=== PATIENT | female | born 1960 | race Caucasian/White ===

== ENCOUNTER 2019-12-21 12:32 | Observation (INO) | payer OTHER, SELFPAY ==
[2019-12-21] VITALS (8 sets, daily range): BP systolic 73–123; BP diastolic 44–67; PULSE 64–102; RESP 14–24; TEMP 36.4–36.7; O2SAT 97–100; BMI 28.6
--- NOTE | ~2019-12-21 | XR_ITS ---
EXAMINATION: XR chest 2V DATE: 12/21/2019 13:11 INDICATION: Shortness of breath TECHNIQUE: PA and lateral views of the chest are obtained. COMPARISON: 11/09/2018 FINDINGS: The lungs are free of acute opacities. There is no pleural effusion or pneumothorax. The ca rdiomediastinal silhouette is normal. There is mild thoracic spondylosis. IMPRESSION: 1. No acute cardiopulmonary abnormality. Reviewed, dictated and finalized at location A.
--- NOTE | ~2019-12-21 | CT_ITS ---
EXAMINATION: CT abdomen pelvis w con DATE: 12/21/2019 15:58 INDICATION: Nausea, vomiting and diarrhea. TECHNIQUE: Computed tomography (CT) of the abdomen and pelvis was performed with 100 cc Omnipaque 350 intravenous contrast. The dose-length product was 908.85 mGy-cm. Automated exposure control and iter ative reconstruction technique were employed. COMPARISON: No prior studies for comparison. FINDINGS: Lung bases are unremarkable. Heart size is normal. No significant pleural or pericardial ef fusion. Densely calcified granuloma left lower lobe. 1.8 cm cyst in the left hepatic lobe. Diffuse fa tty infiltration of the liver. The spleen, pancreas, adrenal glands are unremarkable. There is a left renal cortical thinning posteriorly. There is a 1.6 cm right renal cyst. Gallbladder is present. Non obstructive bowel gas pattern. Normal appendix. No abnormal pelvic masses or fluid collections. No ly mphadenopathy. There is mild lumbar spondylosis. No free air or free fluid. IMPRESSION: 1. No acute abdominal abnormality. 2: Hepatic steatosis. Reviewed, dictated and finalized at location A.
--- NOTE | 2019-12-21 12:42 | ED.SOB ---
HPI - SOB/Dyspnea General Chief Complaint: Shortness of Breath/Dyspnea Stated Complaint: sob Time Seen by Provider: 12/21/19 12:43 Source: patient Mode of arrival: ambulatory Limitations: no limitations History of Present Illness HPI Narrative: 59-year-old woman comes in today complaining of lightheadedness has started this morning in the shower and shortness of breath. Patient states that her blood pressures were normal at home but she kept having episodes of shortness of breath and lightheadedness. She denies having chest pain or pressure, nausea, vomiting, syncope or loss of consciousness, recent head injuries, calf pain or swelling, cough, fever or cold symptoms. She has had no recent travel or sick exposures nor has she had history of VTE, hormone use, recent surgery, immobilization. She is not a smoker. MD elicited complaint: shortness of breath Onset (ago): hour(s) (4-6) Timing: constant Severity: moderate Exacerbating factors: other ( Standing) Relieving factors: rest Associated symptoms: diaphoresis and nausea/vomiting Treatment prior to arrival: none Related Data Home Medications Medication Instructions Recorded Confirmed hydrochlorothiazide 25 mg PO DAILY 12/21/19 12/21/19 losartan 100 mg PO DAILY 12/21/19 12/21/19 Allergies Allergy/AdvReac Type Severity Reaction Status Date / Time CLAUDE Inhibitors Allergy Intermediate angioedema Verified 05/01/18 10:10 amoxicillin Allergy Intermediate hives Verified 05/24/14 11:41 Cephalosporins Allergy Unknown Rash Verified 12/21/19 13:48 Penicillins Allergy Unknown Unknown Verified 12/21/19 12:51 1. amoxicillin nkla Allergy Unknown Unknown Uncoded 12/21/19 12:51 nkfa Allergy Unknown Unknown Uncoded 12/21/19 12:51 Review of Systems Constitutional: Constitutional: Denies chills, Reports fatigue, Denies fever(s) and Reports weakness Eyes: Eyes: Denies change in vision and Denies photophobia ENT: Denies dysphagia, Denies nasal congestion and Denies sore throat Cardiovascular: Cardiovascular: Denies chest pain and Denies radiating jaw, neck or arm pain Respiratory: Respiratory: Denies chest congestion, Denies cough, Reports dyspnea and Denies wheezing Gastrointestinal: Gastrointestinal: Denies abdominal pain, Denies diarrhea, Denies nausea and Denies vomiting Genitourinary: Genitourinary: Denies hematuria, Denies nocturia and Denies dysuria Musculoskeletal: Musculoskeletal: Denies arthralgias and Denies joint swelling Integumentary/Breasts: Skin/Breast: Denies pruritus, Denies erythema and Denies rash Neurologic: Reports as per HPI, Denies vertigo, Reports dizziness, Denies syncope and Denies focal weakness Psychiatric: Psychiatric: Denies anxiety and Denies depression Endocrine: Endocrine: Denies polydipsia and Denies polyuria Hematologic/Lymphatic: Hematologic/Lymphatic: Denies easy bleeding and Denies easy bruising Allergic/Immunologic: Allergic/Immunologic: Denies lip swelling and Denies wheezing PMFSH Past Medical History Medical History Hypertension Family History Family History (Updated 02/01/17 @ 13:17 by DOCTOR UNKNOWN) Father Hypertension Other Family history of alcoholism Family history of malignant neoplasm Family history of mental disorder Social History Social History (Updated 12/21/19 @ 14:11 by Ja Arroyo MD) Smoking status: Never smoker Alcohol intake: current Alcohol use details: daily Substance use: never Living arrangements: with family Exam Const: General: alert Orientation/consciousness: patient oriented x3 Limitations: no limitations Other: moderate acute distress HENMT: Ears: external ears normal, TM's normal bilaterally and EAC's normal Mouth: Yes Normal oral and palatal mucosa present and Yes moist mucous membranes Throat: posterior oropharynx normal Eyes: Conjunctivae: conjunctivae normal Pupils: Equal, round and reactive
--- NOTE | 2019-12-21 12:47 | ECG_ITS ---
Measurements Intervals [place] Rate: 73 P: 44 MD: 159 QRS: 63 QRSD: 101 T: 50 QT: 434 QTc: 481 Interpretive Statements SINUS RHYTHM NONSPECIFIC T-WAVE ABNORMALITY- ANTERIOR LEADS BASELINE ARTIFACT- II, III, V4-V6 NORMAL ECG Electronically Signed On 12-21-2019 13:03:35 CDT by Bobby Calvillo D.O.
--- NOTE | 2019-12-21 13:00 | PC.NURSE ---
xray called, pt vomiting while trying to stand for chest xray, edp aware.
[2019-12-21] MEDS: ONDANSETRON INJ 4 MG/2 ML VIAL IV PUSH (13:04)
[2019-12-21] MEDS: SODIUM CHLORIDE 0.9% IV 1,000 ML 999 ML IV CONT ×2 (13:22→15:11)
[2019-12-21 13:31] LABS: Add Urine Microscopic? YES; Appearance Urine Clear (Clear); Basophils Absolute Auto 0.05 K/mm3 (0.00-0.10); Basophils Percent Auto 0.9 % (0.0-1.0); Bilirubin Urine Negative (Negative); Blood Urine 1+ (Negative); Color Urine Yellow (Yellow); Eosinophils Absolute Auto 0.02 K/mm3 (0.02-0.50); Eosinophils Percent Auto 0.3 % (1.0-6.0); Glucose Urine UA Negative (Negative); Hemoglobin 14.1 g/dL (12.0-15.0); Immature Granulocyte Absolute 0.03 K/mm3 (0.00-0.00); Immature Granulocyte Percent A 0.5 % (0.0-0.0); Ketones Urine Negative (Negative); Leukocyte Esterase Ur Trace LEU/UL (Negative); Lymphocytes Absolute Auto 1.89 K/mm3 (1.10-4.50); Lymphocytes Percent Auto 32.5 % (18.0-42.0); Mean Corpuscular HGB Conc 36.2 g/dL (32.0-36.0); Mean Corpuscular Hemoglobin 36.7 pg (27.0-31.0); Mean Corpuscular Volume 101.6 fL (78.0-102.0); Mean Platelet Volume 10.1 fl (9.2-11.8); Monocytes Absolute Auto 0.55 K/mm3 (0.10-0.90); Monocytes Percent Auto 9.5 % (2.0-11.0); Neutrophils Absolute Auto 3.3 K/mm3 (1.7-7.2); Neutrophils Percent Auto 56.3 % (50.0-70.0); Nitrate Urine Negative (Negative); Platelet Count Result 220 K/mm3 (150-420); Protein Urine Negative (Negative); Red Blood Count 3.84 M/mm3 (4.20-5.40); Red Cell Distribution Width 13.6 % (11.6-14.4); Urobilinogen Urine 0.2 mg/dL (0.2-1.0); White Blood Count 5.8 K/mm3 (4.8-10.8); pH Urine 6.5 (5.0-8.0)
[2019-12-21 13:35] LABS: Bacteria Urine Trace /hpf; Squamous Epithelial Cell Urine Few /hpf (Few); WBC Urine 0-3 /hpf (0-3)
[2019-12-21 13:44] LABS: Partial Thromboplastin Time 25.2 SEC (22.3-31.6)
[2019-12-21 13:48] LABS: Albumin Level 3.2 g/dL (3.4-5.0); Alkaline Phosphatase 196 U/L (46-116); Anion Gap 25.7 mmol/L (7-16); Bilirubin,Total 1.2 mg/dL (0.00-1.00); Blood Urea Nitrogen 16 mg/dL (7-18); Calcium 8.2 mg/dL (8.5-10.1); Carbon Dioxide 17 mmol/L (21-32); Chloride 92 mmol/L (98-108); Estimated CRCL calculation 38 ml/min; Estimated Glomerular Filt Rate 34; Glucose 198 mg/dL (70-99); Osmolality Calculated 281 mOsm/kg (285-295); Potassium 2.7 mmol/L (3.5-5.1); Sodium 132 mmol/L (136-145); Total Protein 8.1 g/dL (6.4-8.2)
[2019-12-21 13:49] LABS: D Dimer 0.46 mg/L (0.19-0.50)
[2019-12-21 13:53] LABS: BNP 17.2 pg/mL (0-100)
[2019-12-21 14:01] LABS: INR 1.2; Prothrombin Time 12.6 Seconds (9.64-11.0)
[2019-12-21 14:10] LABS: Alanine Aminotransferase 170 U/L (14-59); Aspartate Amino Transferase 610 U/L (15-37); Troponin I < 0.02 ng/mL (0.00-0.056)
[2019-12-21] MEDS: KCL 20 MEQ/SW 100 ML 100 ML 50 MEQ IVPB ×2 (14:55→17:30)
[2019-12-21 15:00] LABS: CRP < 0.2 mg/dL (0.0-0.9)
[2019-12-21 15:22] LABS: Lactic Acid 8.4 mmol/L (0.4-2.0)
--- NOTE | 2019-12-21 15:40 | PC.NURSE ---
Pt to be admitted to room 202, will call report after pt has abdominal ct scan.
[2019-12-21 16:15] LABS: Salicylate < 0.3 mg/dL (2.8-20.0)
--- NOTE | 2019-12-21 16:15 | PC.NURSE ---
RN unavailable to take report at this time.
[2019-12-21 16:16] LABS: Acetaminophen 0 ug/mL (10-30); Ethanol < 3 mg/dL (0-6)
[2019-12-21] MEDS: SODIUM CHLORIDE 0.9% IV 1,000 ML 125 ML IV CONT (16:31)
--- NOTE | 2019-12-21 17:33 | ADMGEN ---
This patient, Makenna Garcia, was admitted to 2nd Floor Room 202-2. Patient/family oriented to hospital policies and general routines including ID bracelet, bed and alarms, visiting hours, pain management, procedures, bathroom and other care routines, personal items, smoking policy, room service/diet, and visiting hours. Valuables list has been completed. Information on how to activate the Rapid Response Team has been discussed. Patient/Family are encouraged to report perceived risks to care and to ask questions if they do not understand what they are told or what they should do.
--- NOTE | 2019-12-21 19:30 | PC.NURSE ---
Patient lying in bed watching tv. IV NS infusing without difficulty. Patient denies SOB/pain/complaints/needs @ this time. No distress noted. Call light in reach.
--- NOTE | 2019-12-21 20:07 | PC.NURSE ---
Methyl alcohol level canceled off worklist after checking with Anaya from lab that test had already been done.
[2019-12-21 20:28] LABS: Anion Gap 21.9 mmol/L (7-16); Blood Urea Nitrogen 13 mg/dL (7-18); Calcium 7.4 mg/dL (8.5-10.1); Carbon Dioxide 18 mmol/L (21-32); Chloride 97 mmol/L (98-108); Estimated CRCL calculation 45 ml/min; Estimated Glomerular Filt Rate 41; Glucose 139 mg/dL (70-99); Osmolality Calculated 278 mOsm/kg (285-295); Potassium 3.9 mmol/L (3.5-5.1); Sodium 133 mmol/L (136-145)
[2019-12-21 20:31] LABS: Troponin I < 0.02 ng/mL (0.00-0.056)
--- NOTE | 2019-12-21 20:35 | PC.NURSE ---
Patient lying in bed watching tv. IV NS infusing without difficulty. Patient denies SOB/pain/complaints/needs @ this time. No distress noted. Call light in reach.
[2019-12-21] MEDS: METOPROLOL TARTRATE 25 MG TABLET PO (21:09)
--- NOTE | 2019-12-21 21:10 | PC.NURSE ---
Patient lying in bed watching tv. IV NS infusing without difficulty. Patient denies SOB/pain/complaints/needs @ this time. No distress noted. Call light in reach.
--- NOTE | 2019-12-21 22:00 | PC.NURSE ---
Patient lying in bed watching tv. IV NS infusing without difficulty. Patient denies SOB/pain/complaints/needs @ this time. No distress noted. Call light in reach.
--- NOTE | 2019-12-21 23:10 | PC.NURSE ---
Patient ambulated to/from bathroom with SBA for moving IV pole. Patient had steady gait. No SOB noted. Denies pain/complaints/needs @ this time. No distress noted. Call light in reach.
[2019-12-22] VITALS (8 sets, daily range): BP systolic 113–136; BP diastolic 61–86; PULSE 70–89; RESP 16–18; TEMP 36.6–36.8; O2SAT 97–100
--- NOTE | 2019-12-22 00:05 | PC.NURSE ---
Patient lying in bed watching tv and says she doesn't go to bed until 2-3am @ home. IV NS infusing without difficulty. Patient denies SOB/pain/complaints/needs @ this time. No distress noted. Call light in reach.
[2019-12-22] MEDS: SODIUM CHLORIDE 0.9% IV 1,000 ML 125 ML IV CONT ×2 (00:55→08:54)
--- NOTE | 2019-12-22 01:15 | PC.NURSE ---
Patient lying in bed watching tv. IV NS infusing without difficulty. Patient denies SOB/pain/complaints/needs @ this time. No distress noted. Call light in reach.
--- NOTE | 2019-12-22 02:15 | PC.NURSE ---
Patient lying in bed watching tv and says she plans on turning tv off shortly and trying to get some sleep. IV NS infusing without difficulty. Patient denies SOB/pain/complaints/needs @ this time. No distress noted. Call light in reach.
[2019-12-22 02:18] LABS: Lactic Acid 1.6 mmol/L (0.4-2.0)
[2019-12-22 02:19] LABS: Troponin I < 0.02 ng/mL (0.00-0.056)
[2019-12-22 05:41] LABS: Basophils Absolute Auto 0.05 K/mm3 (0.00-0.10); Basophils Percent Auto 1.1 % (0.0-1.0); Eosinophils Absolute Auto 0.06 K/mm3 (0.02-0.50); Eosinophils Percent Auto 1.4 % (1.0-6.0); Hematocrit 33.3 % (35.0-49.0); Hemoglobin 11.8 g/dL (12.0-15.0); Immature Granulocyte Absolute 0.01 K/mm3 (0.00-0.00); Immature Granulocyte Percent A 0.2 % (0.0-0.0); Lymphocytes Absolute Auto 1.84 K/mm3 (1.10-4.50); Lymphocytes Percent Auto 41.4 % (18.0-42.0); Mean Corpuscular HGB Conc 35.4 g/dL (32.0-36.0); Mean Corpuscular Hemoglobin 35.9 pg (27.0-31.0); Mean Corpuscular Volume 101.2 fL (78.0-102.0); Mean Platelet Volume 10.2 fl (9.2-11.8); Monocytes Absolute Auto 0.57 K/mm3 (0.10-0.90); Monocytes Percent Auto 12.8 % (2.0-11.0); Neutrophils Absolute Auto 1.9 K/mm3 (1.7-7.2); Neutrophils Percent Auto 43.1 % (50.0-70.0); Platelet Count Result 159 K/mm3 (150-420); Red Blood Count 3.29 M/mm3 (4.20-5.40); Red Cell Distribution Width 13.5 % (11.6-14.4); White Blood Count 4.4 K/mm3 (4.8-10.8)
[2019-12-22 06:10] LABS: Alanine Aminotransferase 113 U/L (14-59); Albumin Level 2.4 g/dL (3.4-5.0); Alkaline Phosphatase 156 U/L (46-116); Anion Gap 16.9 mmol/L (7-16); Aspartate Amino Transferase 352 U/L (15-37); Bilirubin,Total 0.9 mg/dL (0.00-1.00); Blood Urea Nitrogen 9 mg/dL (7-18); Calcium 7.5 mg/dL (8.5-10.1); Carbon Dioxide 22 mmol/L (21-32); Chloride 103 mmol/L (98-108); Estimated CRCL calculation 58 ml/min; Estimated Glomerular Filt Rate 56; Glucose 114 mg/dL (70-99); Osmolality Calculated 287 mOsm/kg (285-295); Potassium 2.9 mmol/L (3.5-5.1); Sodium 139 mmol/L (136-145); Total Protein 6.4 g/dL (6.4-8.2)
[2019-12-22 06:12] LABS: Troponin I < 0.02 ng/mL (0.00-0.056)
[2019-12-22] MEDS: METOPROLOL TARTRATE 25 MG TABLET PO (08:56)
--- NOTE | 2019-12-22 11:53 | PM.IMHP ---
H&P: HPI History of Present Illness Chief complaint: sob Narrative: Maknena Garcia is a 59 year old female admitted with shortness of breath, dyspnea, and lightheadedness. She was admitted yesterday after complaining of lightheadedness that started yesterday morning in the shower along with shortness of breath. Patient states that her blood pressures were normal at home but she kept having episodes of shortness of breath and lightheadedness. Also having diaphoresis and nausea/vomiting. She denies having chest pain or pressure, nausea, vomiting, syncope or loss of consciousness, recent head injuries, calf pain or swelling, cough, fever or cold symptoms. She has had no recent travel or sick exposures nor has she had history of VTE, hormone use, recent surgery, immobilization. She is not a smoker, but her smokes approximately 3 packs per day outside the home in the garage or in the basement. She Was admitted with Acute dehydration, Acute hypokalemia, Acidosis, lactic, and Acute renal failure. Today when I went to see Makenna she said she did not realize how much water she should of been drinking at home. She stated that she went all day yesterday without eating anything as well, literally eating nothing until 6:00 p.m. last night when she was in the ER. She stated that her household has been pretty stressful the last couple of months with 4 or more teenagers over the age of 16 to care for as well as her home from work due to lay off from his job. She has also lost multiple parents and grandparents over the last few years so her house is full of furniture as well as her garage, so she is looking to get storage units. She no longer works for the [employer] full-time and is now been home. She does admit to drinking the large boxes of wine on a daily basis, but felt she was watering it down by adding water to it. She did admit that her is an alcoholic, but denied contributing to that and does not assist him by getting more alcohol for him. Her creatinine admission was significantly elevated at 1.57, this morning her creatinine was 1.02. She has received continuous IV fluids including large IV boluses in the ER yesterday. She is hydrating herself well today, and has already taken in a couple mugs of ice water orally. Her sodium has also improved from 08/23 to admission to 139 this morning. we will need to replenish her potassium as this morning it was 2.9. I have ordered 40 oral potassium as well as 20 IV potassium. That is currently infusing, with a repeat potassium level scheduled for 3:30 p.m. today. Plan to discharge her if that is adequately replenished. Her blood and urine cultures will remain pending and she can follow-up with her primary care physician's office after discharge. Review of Systems Constitutional: Constitutional: Denies chills, Denies excessive sweating, Reports fatigue, Denies fever(s), Denies headache(s), Denies increased appetite, Denies snoring, Reports weakness and Denies weight gain Eyes: Eyes: Denies exophthalmos, Denies change in vision, Denies diplopia, Denies floaters, Denies loss of peripheral vision and Denies photophobia ENT: Denies dysphagia, Denies vertigo, Reports dizziness, Denies facial pain, Denies headache(s), Denies lip swelling, Denies nasal congestion, Denies odynophagia, Denies tinnitus and Denies sore throat Cardiovascular: Cardiovascular: Denies chest pain, Denies syncope, Denies radiating jaw, neck or arm pain and Reports dyspnea Respiratory: Respiratory: Denies chest congestion, Denies cough, Reports dyspnea, Denies snoring and Denies wheezing Gastrointestinal: Gastrointestinal: Denies abdominal pain, Denies dysphagia, Denies diarrhea, Denies nausea, Denies odynophagia and Denies vomiting Genitourinary: Genitourinary: Denies hematuria, Denies nocturia and Denies dysuria Musculoskeletal: Musculoskeletal: Denies arthralgias and Denies joint swelling Integumentary/Breasts: Skin/
[2019-12-22] MEDS: POTASSIUM CHLORIDE 20 MEQ TABLET 40 MEQ PO (12:10)
[2019-12-22] MEDS: KCL 20 MEQ/SW 100 ML 100 ML 50 MEQ IVPB (12:10)
--- NOTE | 2019-12-22 14:25 | PC.NURSE ---
[facility] unable to transfer patient r/t already being on a call. [facility] called and responding to patient transfer.
[2019-12-22 15:50] LABS: Potassium 3.7 mmol/L (3.5-5.1)
--- NOTE | 2019-12-22 16:06 | PM.DS ---
DS: Admitting Diagnosis Admitting Diagnosis Admitting Diagnosis: Dehydration DS: Discharge Diagnosis Discharge Diagnosis (1) Acute dehydration: Code(s): E86.0 - Dehydration Status: Acute Assessment and Plan: creatinine admission was significantly elevated at 1.57, this morning her creatinine was 1.02. received continuous IV fluids including large IV boluses in the ER yesterday. hydrating herself well today, and has already taken in a couple mugs of ice water orally. Her sodium has also improved from 08/23 to admission to 139 this morning. (2) Acute hypokalemia: Code(s): E87.6 - Hypokalemia Status: Acute Assessment and Plan: She did receive a couple of potassium K riders yesterday with her ER admission we will need to replenish her potassium as this morning it was 2.9. I have ordered 40 oral potassium as well as 20 IV potassium. potassium this afternoon was 3.7 provided patient with a list of potassium rich foods and encouraged her to watch what she eats/or doesn't eat and try to improve her diet over the next few weeks will discontinue her hydrochlorothiazide at discharge to avoid further depletion of potassium at home I have completed extensive patient education regarding her getting better dietary intake and having better food choices throughout the day (3) Acidosis, lactic: Code(s): E87.2 - Acidosis Status: Acute Assessment and Plan: her lactic acid level was 8.4 at admission, then 1.6 today and normal she denies any attempted suicide, denies any drug use, denies any medication overdose, states that she is not constipated and has been having bowel movements on a daily basis, and reports voiding throughout the day she has received multiple IV fluid boluses as well as keeping herself hydrated orally since admission electrolytes have been replenished blood cultures preliminary report shows no growth urine cultures will remain pending and she can follow-up with her primary care physician's office after discharge. (4) Acute renal failure: Qualifiers: Acute renal failure type: unspecified Qualified Code(s): N17.9 - Acute kidney failure, unspecified Code(s): N17.9 - Acute kidney failure, unspecified Status: Acute Assessment and Plan: RESOLVED through hydration creatinine admission was significantly elevated at 1.57, this morning her creatinine was 1.02. received continuous IV fluids including large IV boluses in the ER yesterday. hydrating herself well today, and has already taken in a couple mugs of ice water orally. sodium has also improved from 08/23 to admission to 139 this morning. urine cultures will remain pending and she can follow-up with her primary care physician's office after discharge. will discontinue her hydrochlorothiazide and reduce her losartan dose, as her blood pressures have been well controlled throughout her admission (SBPs 113-136) (5) Stress at home: Code(s): F43.9 - Reaction to severe stress, unspecified Status: Acute Assessment and Plan: I have discussed multiple options with Makenna for stress management including EAP programs through her 's job, that provide counseling, including marital counseling perhaps restarting her physical therapy and occupational therapy on an outpatient basis here at [facility], as she has done in the past encouraged her to take a walk at home when the stress becomes too much, or when her is yelling at her, such as a 10 minutes walk encouraged her to enroll the help of the teenage children to clear out any clutter and organize her inherited furniture she will have to discuss further possible stress relief with her family, I have encouraged her to have a family meeting if she needs medications are further referrals, she will need to speak with her PCP after discharge (6) Steatohepatitis, alcoholic: Code(s): K70.10 - Alcoholic
[2019-12-25 19:36] LABS: Hepatitis A Antibody IgM Nonreactive; Hepatitis B Core Antibody Nonreactive (Nonreactive); Hepatitis B Surface Antigen Nonreactive (Nonreactive); Hepatitis C Signal to Cutoff 0.04 ratio (<1.00); Hepatitis C Virus Antibody Nonreactive (Nonreactive)
== END 2019-12-22 17:00 | disposition home or self-care (01) ==
LOC: CHSED 12:37 → CHS2ND 15:39
PROVIDERS: Nurse Practitioner; Admitting Provider Emergency Medicine; Emergency Provider Emergency Medicine; PCP Nurse Practitioner Family; Visit Provider Emergency Medicine
DX: E86.0 Dehydration (principal); E87.1 Hypo-osmolality and hyponatremia; E87.6 Hypokalemia; E87.2 Acidosis; K70.10 Alcoholic hepatitis without ascites; K76.0 Fatty (change of) liver, not elsewhere classified; I10 Essential (primary) hypertension
CPT/HCPCS: 36415; 71046; 74177; 80048; 80053; 80074; 80307; 81001; 83605; 83880; 84132; 84484; 85025; 85380; 85610; 85730; 86140; 87040; 87086; 87088; 93005; 96361; 96365; 96366; 96375; 99284; 99285; A9270; G0378; J2405; J3480; J7030; Q9965

== ENCOUNTER 2019-12-24 11:16 | Outpatient (CLI) | payer OTHER, SELFPAY ==
[2019-12-24 12:26] LABS: Alanine Aminotransferase 105 U/L (14-59); Albumin Level 2.7 g/dL (3.4-5.0); Alkaline Phosphatase 138 U/L (46-116); Anion Gap 11.7 mmol/L (7-16); Aspartate Amino Transferase 258 U/L (15-37); Bilirubin,Total 0.7 mg/dL (0.00-1.00); Blood Urea Nitrogen 7 mg/dL (7-18); Calcium 8.3 mg/dL (8.5-10.1); Carbon Dioxide 30 mmol/L (21-32); Chloride 103 mmol/L (98-108); Estimated Glomerular Filt Rate > 60; Glucose 101 mg/dL (70-99); Magnesium 1.3 mg/dL (1.8-2.4); Osmolality Calculated 290 mOsm/kg (285-295); Potassium 3.7 mmol/L (3.5-5.1); Sodium 141 mmol/L (136-145); Total Protein 6.8 g/dL (6.4-8.2)
== END 2019-12-24 11:17 | disposition home or self-care (01) ==
PROVIDERS: PCP Nurse Practitioner Family; Visit Provider Nurse Practitioner
DX: E87.6 Hypokalemia (principal); N17.9 Acute kidney failure, unspecified; K70.10 Alcoholic hepatitis without ascites; E86.0 Dehydration; E87.2 Acidosis
CPT/HCPCS: 36415; 80053; 83735; 84100

== ENCOUNTER 2020-01-04 14:24 | Outpatient (CLI) | payer OTHER, SELFPAY ==
[2020-01-04 15:32] LABS: Alanine Aminotransferase 68 U/L (14-59); Albumin Level 3.5 g/dL (3.4-5.0); Alkaline Phosphatase 94 U/L (46-116); Anion Gap 13.2 mmol/L (7-16); Aspartate Amino Transferase 102 U/L (15-37); Bilirubin,Total 0.3 mg/dL (0.00-1.00); Blood Urea Nitrogen 11 mg/dL (7-18); Calcium 9.1 mg/dL (8.5-10.1); Carbon Dioxide 27 mmol/L (21-32); Chloride 101 mmol/L (98-108); Estimated Glomerular Filt Rate > 60; Glucose 86 mg/dL (70-99); Magnesium 1.6 mg/dL (1.8-2.4); Osmolality Calculated 282 mOsm/kg (285-295); Potassium 4.2 mmol/L (3.5-5.1); Sodium 137 mmol/L (136-145); Total Protein 7.8 g/dL (6.4-8.2)
== END 2020-01-04 14:25 | disposition home or self-care (01) ==
LOC: CHSLAB 14:26
PROVIDERS: PCP Nurse Practitioner Family; Visit Provider Nurse Practitioner Family
DX: K70.10 Alcoholic hepatitis without ascites (principal); E83.42 Hypomagnesemia
CPT/HCPCS: 36415; 80053; 83735

== ENCOUNTER 2020-07-16 21:30 | Emergency (ER) | payer OTHER, SELFPAY ==
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
[2020-07-16 22:27] VITALS: BP 126/84; PULSE 92; RESP 16; TEMP 37; O2SAT 97
[2020-07-16 22:53] VITALS: BP 126/88; PULSE 88; RESP 16; O2SAT 98
--- NOTE | 2020-07-16 22:54 | PC.NURSE ---
has a raised area to left temporal area, size of quarter
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
[2020-07-16 23:04] VITALS: BP 130/80; PULSE 88; RESP 18; TEMP 36.3; O2SAT 97
== END 2020-07-16 23:05 | disposition home or self-care (01) ==
PROVIDERS: Emergency Provider Emergency Medicine; PCP Nurse Practitioner Family
DX: S09.90XA Unspecified injury of head, initial encounter (principal); W22.8XXA Striking against or struck by other objects, initial encounter
CPT/HCPCS: 70450; 99282; 99284

== ENCOUNTER 2020-07-23 16:43 | Outpatient (CLI) | payer OTHER, SELFPAY ==
[2020-07-23 17:58] LABS: Alanine Aminotransferase 34 U/L (14-59); Albumin Level 3.6 g/dL (3.4-5.0); Anion Gap 10 mmol/L (8-16); Aspartate Amino Transferase 69 U/L (15-37); Blood Urea Nitrogen 14 mg/dL (7-18); Carbon Dioxide 26 mmol/L (21-32); Chloride 98 mmol/L (98-108); Estimated Glomerular Filt Rate > 60; Glucose 97 mg/dL (70-99); Magnesium 1.6 mg/dL (1.8-2.4); Osmolality Calculated 278 mOsm/kg (285-295); Sodium 134 mmol/L (136-145)
[2020-07-23 18:09] LABS: Alkaline Phosphatase 76 U/L (46-116); Bilirubin,Total 0.6 mg/dL (0.00-1.00)
== END 2020-07-23 16:44 | disposition home or self-care (01) ==
LOC: CHSLAB 16:46
PROVIDERS: PCP Nurse Practitioner Family; Visit Provider Nurse Practitioner Family
DX: E83.42 Hypomagnesemia (principal); K70.10 Alcoholic hepatitis without ascites
CPT/HCPCS: 36415; 80053; 83735

== ENCOUNTER 2020-08-25 12:21 | Outpatient (CLI) | payer OTHER, SELFPAY ==
[2020-08-25 13:28] LABS: SARS-CoV-2 Ag Negative (Negative)
== END 2020-08-25 12:22 | disposition home or self-care (01) ==
PROVIDERS: PCP Nurse Practitioner Family; Visit Provider Nurse Practitioner Family
DX: R09.81 Nasal congestion (principal); Z20.822 Contact with and (suspected) exposure to COVID-19
CPT/HCPCS: 87426; C9803

== ENCOUNTER 2020-08-26 14:45 | Outpatient (NON) | payer OTHER, SELFPAY | END 2020-08-26 14:46 | LOC: CHSLAB 14:46 | PROVIDERS: Visit Provider Nurse Practitioner Family | DX: R31.9 Hematuria, unspecified (principal) | CPT/HCPCS: 87077; 87086; 87088 ==

== ENCOUNTER 2020-10-15 23:08 | Emergency (ER) | payer OTHER, SELFPAY ==
[2020-10-15 23:10] VITALS: BP 152/98; PULSE 78; RESP 20; TEMP 36; O2SAT 98
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
[2020-10-15] MEDS: LIDOCAINE HCL 1% LOCAL INJ 20 ML VIAL (23:45)
--- NOTE | 2020-10-15 23:46 | ED.GENADULT ---
HPI - General Adult General Chief complaint: Wound/Laceration Stated complaint: Laceration to thumb Source: patient Mode of arrival: ambulatory Limitations: no limitations History of Present Illness HPI narrative: Makenna presented to clinic with a 1cm laceration to he posterior side of her right thumb. She cut it on a can of red beans. No other injuries or medical concerns. Tetanus up to date. Related Data Allergies Allergy/AdvReac Type Severity Reaction Status Date / Time CLAUDE Inhibitors Allergy Intermediate angioedema Verified 08/12/20 10:37 amoxicillin Allergy Intermediate hives Verified 08/12/20 10:37 Cephalosporins Allergy Unknown Rash Verified 08/12/20 10:37 Penicillins Allergy Unknown Unknown Verified 08/12/20 10:37 Review of Systems Constitutional: Constitutional: Reports no additional constitutional complaints, Denies chills and Denies fever(s) Eyes: Eyes: Reports no additional eye complaints ENT: Reports system reviewed and no additional complaints, except as documented Cardiovascular: Cardiovascular: Reports no additional cardiovascular complaints Respiratory: Respiratory: Reports no additional respiratory complaints Gastrointestinal: Gastrointestinal: Reports no additional gastrointestinal complaints Genitourinary: Genitourinary: Reports no additional female genitourinary complaints Musculoskeletal: Musculoskeletal: Reports no additional musculoskeletal complaints Integumentary/Breasts: Skin/Breast: Reports as per HPI Neurologic: Reports system reviewed and no additional complaints, except as documented Psychiatric: Psychiatric: Reports no additional psychiatric complaints Endocrine: Endocrine: Reports no additional endocrine complaints Hematologic/Lymphatic: Hematologic/Lymphatic: Reports no additional hematologic/lymphatic complaints Allergic/Immunologic: Allergic/Immunologic: Reports no additional allergic/immunologic complaints PMFSH Past Medical History Medical History Acute dehydration Alcohol abuse Hypertension Overweight Screening for depression Stress at home Family History Family History Father Hypertension Other Family history of alcoholism Family history of malignant neoplasm Family history of mental disorder Social History Social History Smoking status: Former smoker Tobacco type: cigarettes Alcohol intake: current Drinks per week: 3 Substance use: never Gender identity (if verbalized by the patient): Female Spiritual care concerns: No Exam Const: General: no acute distress and alert Orientation/consciousness: patient oriented x3 Limitations: No altered mental status HENMT: Head: normal to inspection Eyes: Conjunctivae: conjunctivae normal Pupils: Equal, round and reactive pupils present Neck: Neck: normal visual inspection Chest: Chest palpation & inspection: normal inspection of the chest Resp: Effort & Inspection: normal respiratory effort Auscultation: clear to auscultation bilaterally Cardio: Rate: regular rate Skin: General skin exam: normal color Rashes: no rashes Other: 1cm laceration just distal to the knuckle that went to the sub Q tissue Neuro: General: patient oriented x3 and moves all extremities Extrem: General: normal to inspection Psych: Mental Status: mental status grossly normal Course Vital Signs Vital signs: Vital Signs Temperature 96.8 F L 10/15/20 23:10 Pulse Rate 78 10/15/20 23:10 Respiratory Rate 20 10/15/20 23:10 Blood Pressure 152/98 H 10/15/20 23:10 Pulse Oximetry 98 10/15/20 23:10 Temperature 96.8 F L 10/15/20 23:10 Pulse Rate 78 10/15/20 23:10 Respiratory Rate 20 10/15/20 23:10 Blood Pressure 152/98 H 10/15/20 23:10 Pulse Oximetry 98 10/15/20 23:10 Procedures Laceration Laceration 1: Site: other (right thumb ) Side (If applicabl
[2020-10-15] MEDS: NEOMYCIN/POLYMYXIN/BACITRACIN OINTMENT PACKET 1 PACKET (23:55)
== END 2020-10-16 00:01 | disposition home or self-care (01) ==
PROVIDERS: Emergency Provider Family Medicine; PCP Nurse Practitioner Family
DX: S61.011A Laceration without foreign body of right thumb without damage to nail, initial encounter (principal); W26.8XXA Contact with other sharp object(s), not elsewhere classified, initial encounter
CPT/HCPCS: 12001; 99282

== ENCOUNTER 2021-02-09 18:23 | Outpatient (CLI) | payer OTHER, SELFPAY ==
[2021-02-09 18:39] LABS: Basophils Absolute Auto 0.04 K/mm3 (0.00-0.10); Basophils Percent Auto 0.4 % (0.0-1.0); Eosinophils Absolute Auto 0.04 K/mm3 (0.02-0.50); Eosinophils Percent Auto 0.4 % (1.0-6.0); Hematocrit 40.3 % (35.0-49.0); Hemoglobin 14.1 g/dL (12.0-15.0); Immature Granulocyte Absolute 0.02 K/mm3 (0.00-0.00); Immature Granulocyte Percent A 0.2 % (0.0-0.0); Lymphocytes Absolute Auto 1.24 K/mm3 (1.10-4.50); Lymphocytes Percent Auto 13.2 % (18.0-42.0); Mean Corpuscular Hemoglobin 33.8 pg (27.0-31.0); Mean Corpuscular Volume 96.6 fL (78.0-102.0); Mean Platelet Volume 9.3 fl (9.2-11.8); Monocytes Absolute Auto 0.74 K/mm3 (0.10-0.90); Monocytes Percent Auto 7.9 % (2.0-11.0); Neutrophils Absolute Auto 7.3 K/mm3 (1.7-7.2); Neutrophils Percent Auto 77.9 % (50.0-70.0); Platelet Count Result 298 K/mm3 (150-420); Red Blood Count 4.17 M/mm3 (4.20-5.40); Red Cell Distribution Width 12.4 % (11.6-14.4); White Blood Count 9.4 K/mm3 (4.8-10.8)
[2021-02-09 19:25] LABS: Alanine Aminotransferase 33 U/L (14-59); Albumin Level 4.2 g/dL (3.4-5.0); Alkaline Phosphatase 97 U/L (46-116); Anion Gap 17 mmol/L (8-16); Aspartate Amino Transferase 60 U/L (15-37); Bilirubin,Total 0.8 mg/dL (0.00-1.00); Blood Urea Nitrogen 19 mg/dL (7-18); Calcium 9.6 mg/dL (8.5-10.1); Carbon Dioxide 23 mmol/L (21-32); Chloride 90 mmol/L (98-108); Estimated Glomerular Filt Rate 35; Glucose 117 mg/dL (70-99); Osmolality Calculated 273 mOsm/kg (285-295); Potassium 4.1 mmol/L (3.5-5.1); Sodium 130 mmol/L (136-145); Total Protein 8.6 g/dL (6.4-8.2)
== END 2021-02-09 18:24 | disposition home or self-care (01) ==
LOC: CHSLAB 18:27
PROVIDERS: PCP Nurse Practitioner Family; Visit Provider Nurse Practitioner Family
DX: N17.9 Acute kidney failure, unspecified (principal); E87.6 Hypokalemia
CPT/HCPCS: 36415; 80053; 85025

== ENCOUNTER 2021-02-10 11:06 | Outpatient (CLI) | payer OTHER, SELFPAY ==
[2021-02-10] MEDS: SODIUM CHLORIDE 0.9% IV 1,000 ML 250 ML IVPB (11:30)
[2021-02-10 11:40] VITALS: BMI 30.2
[2021-02-10 11:41] VITALS: BP 90/62; PULSE 80; RESP 14; TEMP 36.6; O2SAT 98
[2021-02-10 14:58] VITALS: BP 118/73; PULSE 78; RESP 14; O2SAT 97
--- NOTE | 2021-02-10 15:02 | PC.NURSE ---
Patient tolerated 1 L NS infusion well. Labs from yesterday reviewed. Instructed on IV/NS with understanding. No concerns. Safe exit of hospital.
[2021-02-10 18:42] LABS: Hematocrit 35.1 % (35.0-49.0); Hemoglobin 12.3 g/dL (12.0-15.0); Mean Corpuscular Hemoglobin 33.8 pg (27.0-31.0); Mean Corpuscular Volume 96.4 fL (78.0-102.0); Mean Platelet Volume 9.1 fl (9.2-11.8); Platelet Count Result 260 K/mm3 (150-420); Red Blood Count 3.64 M/mm3 (4.20-5.40); Red Cell Distribution Width 12.2 % (11.6-14.4); White Blood Count 7.4 K/mm3 (4.8-10.8)
[2021-02-10 19:02] LABS: Alanine Aminotransferase 30 U/L (14-59); Albumin Level 3.7 g/dL (3.4-5.0); Alkaline Phosphatase 86 U/L (46-116); Anion Gap 14 mmol/L (8-16); Aspartate Amino Transferase 51 U/L (15-37); Bilirubin,Total 0.7 mg/dL (0.00-1.00); Blood Urea Nitrogen 24 mg/dL (7-18); Calcium 8.7 mg/dL (8.5-10.1); Carbon Dioxide 22 mmol/L (21-32); Chloride 93 mmol/L (98-108); Estimated CRCL calculation 57 ml/min; Estimated Glomerular Filt Rate 54; Glucose 123 mg/dL (70-99); Osmolality Calculated 273 mOsm/kg (285-295); Potassium 3.7 mmol/L (3.5-5.1); Sodium 129 mmol/L (136-145)
[2021-02-10 19:58] LABS: Band Neutrophils Percent 0 % (0-6); Basophils Absolute Manual 0.07 K/mm3 (0-0.1); Basophils Percent Manual 1 % (0-1); Lymphocytes Percent Manual 23 % (18-44); Monocytes Absolute Manual 1.18 K/mm3 (0.1-0.90); Monocytes Percent Manual 16 % (3-9); Neutrophils Absolute Manual 4.44 K/mm3 (1.7-7.2); Neutrophils Percent Manual 60 % (46-73); Platelet Estimate Adequate (Adequate); Total Cells Counted 100
== END 2021-02-10 11:07 | disposition home or self-care (01) ==
LOC: CHSTREATRM 11:07
PROVIDERS: PCP Nurse Practitioner Family; Visit Provider Nurse Practitioner Family
DX: E86.0 Dehydration (principal); N17.9 Acute kidney failure, unspecified
CPT/HCPCS: 36415; 80053; 85025; 96360; 96361; J7030

== ENCOUNTER 2021-02-12 08:11 | Outpatient (CLI) | payer OTHER, SELFPAY ==
[2021-02-12 09:40] LABS: Alanine Aminotransferase 32 U/L (14-59); Albumin Level 3.7 g/dL (3.4-5.0); Alkaline Phosphatase 81 U/L (46-116); Anion Gap 13 mmol/L (8-16); Aspartate Amino Transferase 50 U/L (15-37); Bilirubin,Total 0.7 mg/dL (0.00-1.00); Blood Urea Nitrogen 17 mg/dL (7-18); Calcium 9.3 mg/dL (8.5-10.1); Carbon Dioxide 25 mmol/L (21-32); Chloride 102 mmol/L (98-108); Estimated Glomerular Filt Rate > 60; Glucose 123 mg/dL (70-99); Osmolality Calculated 292 mOsm/kg (285-295); Sodium 140 mmol/L (136-145); Total Protein 7.8 g/dL (6.4-8.2)
== END 2021-02-12 08:12 | disposition home or self-care (01) ==
LOC: CHSLAB 08:12
PROVIDERS: PCP Nurse Practitioner Family; Visit Provider Nurse Practitioner Family
DX: E87.1 Hypo-osmolality and hyponatremia (principal)
CPT/HCPCS: 36415; 80053

== ENCOUNTER 2021-02-20 16:25 | Outpatient (CLI) | payer OTHER, SELFPAY ==
[2021-02-20 17:04] LABS: Alanine Aminotransferase 40 U/L (14-59); Albumin Level 3.4 g/dL (3.4-5.0); Alkaline Phosphatase 83 U/L (46-116); Anion Gap 11 mmol/L (8-16); Aspartate Amino Transferase 60 U/L (15-37); Bilirubin,Total 0.4 mg/dL (0.00-1.00); Blood Urea Nitrogen 14 mg/dL (7-18); Calcium 8.6 mg/dL (8.5-10.1); Carbon Dioxide 27 mmol/L (21-32); Chloride 104 mmol/L (98-108); Estimated Glomerular Filt Rate > 60; Glucose 98 mg/dL (70-99); Osmolality Calculated 294 mOsm/kg (285-295); Sodium 142 mmol/L (136-145); Total Protein 7.2 g/dL (6.4-8.2)
== END 2021-02-20 16:26 | disposition home or self-care (01) ==
LOC: CHSLAB 16:27
PROVIDERS: PCP Nurse Practitioner Family; Visit Provider Nurse Practitioner Family
DX: E87.6 Hypokalemia (principal)
CPT/HCPCS: 36415; 80053

== ENCOUNTER 2021-03-17 16:28 | Outpatient (CLI) | payer OTHER, SELFPAY ==
[2021-03-17 17:53] LABS: SARS-CoV-2 RNA PCR Negative (Negative)
== END 2021-03-17 16:29 | disposition home or self-care (01) ==
LOC: CHSLAB 16:30
PROVIDERS: PCP Nurse Practitioner Family; Visit Provider Nurse Practitioner Family
DX: Z20.822 Contact with and (suspected) exposure to COVID-19 (principal)
CPT/HCPCS: C9803; U0003; U0005

== ENCOUNTER 2021-04-04 15:42 | Outpatient (CLI) | payer OTHER, SELFPAY ==
[2021-04-04 20:05] LABS: SARS-CoV-2 RNA PCR Negative (Negative)
== END 2021-04-04 15:43 | disposition home or self-care (01) ==
LOC: CHSLAB 15:44
PROVIDERS: PCP Nurse Practitioner Family; Visit Provider Nurse Practitioner Family
DX: R05 Cough (principal); Z20.822 Contact with and (suspected) exposure to COVID-19
CPT/HCPCS: C9803; U0003; U0005

== ENCOUNTER 2021-04-06 13:59 | Outpatient (CLI) | payer OTHER, SELFPAY ==
--- NOTE | ~2021-04-06 | XR_ITS ---
XR chest 2V DATE: 04/06/2021 14:22 INDICATION: Cough and dizziness for 2 months. Toxic cc we exposure in [place]. TECHNIQUE: PA and lateral views COMPARISON: 12/21/2019 2 view chest FINDINGS: Heart size is normal. There is mild aortic unfolding. No hilar or mediastinal enlargement. Moderate bilateral hyperinflation. No pulmonary infiltrate or consolidation, pleural effusion or pulm onary vascular congestion or pneumothorax. Included skeletal structures are unremarkable. IMPRESSION: Bilateral hyperinflation; no active cardiopulmonary disease Reviewed, dictated and finalized at location [facility].
== END 2021-04-06 14:00 | disposition home or self-care (01) ==
LOC: CHSIMG 14:01
PROVIDERS: PCP Nurse Practitioner Family; Visit Provider Nurse Practitioner Family
DX: R05 Cough (principal)
CPT/HCPCS: 71046

== ENCOUNTER 2021-04-21 10:08 | Outpatient (CLI) | payer OTHER, SELFPAY ==
--- NOTE | 2021-04-22 12:52 | WPDPFTINT ---
PFT Procedure Performed PFT Procedure Performed Spirometry with Pre/Post Bronchodilator Plethysmography (Lung Vol) Diffusing Cap (DLCO) Flow Vol Loop PFT Interpretation DOS:04/21/2021 REQUESTING: Fatmata Rahman NP REASON FOR TESTING: Cough, abnormal CXR PULMONARY FUNCTION TESTS Results are reliable and reproducible. Spirometry: FEV1 is 98% predicted, 2.42 L. FVC is 101%. These are both normal. FEV1/ FVC ratio is normal. There is no change with bronchodilator. Lung volumes: Total lung capacity is 95% predicted, normal. Slow vital capacity 107% normal. Residual volume 83% normal. RV/TLC is 88% normal. Airway resistance 115% normal. All values are normal. Diffusion: DLCO 83% predicted, normal. Flow volume loop: Normal. IMPRESSION: This study shows normal spirometry, lung volumes, diffusion and airway resistance. Lack of response to bronchodilator should not preclude use if clinically indicated. Exhaled nitric oxide level is 12 ppb, normal. This is consistent with absence of increased airway inflammation at the time of the test. Bee Hernandez MD
== END 2021-04-21 10:09 | disposition home or self-care (01) ==
PROVIDERS: PCP Nurse Practitioner Family; Visit Provider Nurse Practitioner Family
DX: R93.89 Abnormal findings on diagnostic imaging of other specified body structures (principal); R05 Cough
CPT/HCPCS: 94060; 94726; 94729; 95012

== ENCOUNTER 2021-07-28 15:57 | Outpatient (CLI) | payer OTHER, SELFPAY ==
[2021-07-28 17:46] LABS: SARS-CoV-2 RNA PCR Negative (Negative)
== END 2021-07-28 15:58 | disposition home or self-care (01) ==
LOC: CHSLAB 15:58
PROVIDERS: PCP Family Medicine; Visit Provider Family Medicine
DX: Z20.822 Contact with and (suspected) exposure to COVID-19 (principal)
CPT/HCPCS: C9803; U0003; U0005

== ENCOUNTER 2021-08-06 15:40 | Outpatient (CLI) | payer OTHER, SELFPAY ==
--- NOTE | ~2021-08-06 | XR_ITS ---
EXAMINATION: XR shoulder RT min 2V EXAM DATE: 08/06/2021 16:13 INDICATION: No known recent injury provided at this time. Pain of the right shoulder. TECHNIQUE: The following right shoulder projections obtained: frontal projection with internal rotati on, frontal projection with external rotation, Grashey, and scapular Y view (4+ views). There is no prior study for comparison. FINDINGS: No evidence of right shoulder rotator cuff calcific tendinosis. There is mild glenohumer al joint, moderate acromioclavicular joint primary osteoarthritis. There are no acute fractures or di slocations identified. There is no subcutaneous gas. The soft tissue is unremarkable. There are n o radiopaque foreign bodies. IMPRESSION: Moderate right acromioclavicular, mild glenohumeral osteoarthritis. Reviewed, dictated and finalized at location A. PRESS OPERATOR
[2021-08-06 15:57] LABS: Basophils Absolute Auto 0.06 K/mm3 (0.00-0.10); Basophils Percent Auto 0.7 % (0.0-1.0); Eosinophils Absolute Auto 0.19 K/mm3 (0.02-0.50); Eosinophils Percent Auto 2.1 % (1.0-6.0); Hematocrit 40.6 % (35.0-49.0); Hemoglobin 13.7 g/dL (12.0-15.0); Immature Granulocyte Absolute 0.03 K/mm3 (0.00-0.00); Immature Granulocyte Percent A 0.3 % (0.0-0.0); Lymphocytes Absolute Auto 1.46 K/mm3 (1.10-4.50); Mean Corpuscular HGB Conc 33.7 g/dL (32.0-36.0); Mean Corpuscular Hemoglobin 32.5 pg (27.0-31.0); Mean Corpuscular Volume 96.2 fL (78.0-102.0); Mean Platelet Volume 9.2 fl (9.2-11.8); Monocytes Absolute Auto 0.72 K/mm3 (0.10-0.90); Monocytes Percent Auto 7.9 % (2.0-11.0); Neutrophils Absolute Auto 6.7 K/mm3 (1.7-7.2); Platelet Count Result 295 K/mm3 (150-420); Red Blood Count 4.22 M/mm3 (4.20-5.40); Red Cell Distribution Width 11.9 % (11.6-14.4); White Blood Count 9.1 K/mm3 (4.8-10.8)
[2021-08-06 16:02] LABS: Add Urine Microscopic? YES; Bilirubin Urine Negative (Negative); Blood Urine 3+ (Negative); Color Urine Light Yellow (Yellow); Glucose Urine UA Negative (Negative); Ketones Urine Negative (Negative); Leukocyte Esterase Ur 2+ LEU/UL (Negative); Nitrate Urine Negative (Negative); Protein Urine 2+ (Negative); Urobilinogen Urine 0.2 mg/dL (0.2-1.0); pH Urine 5.5 (5.0-8.0)
[2021-08-06 16:09] LABS: Appearance Urine Cloudy (Clear); Bacteria Urine 1+ /hpf; Renal Epithelial Cells Urine Few /hpf; Squamous Epithelial Cell Urine Few /hpf (Few); WBC Urine >75 /hpf (0-3)
[2021-08-06 16:23] LABS: Alanine Aminotransferase 25 U/L (14-59); Albumin Level 3.4 g/dL (3.4-5.0); Alkaline Phosphatase 106 U/L (46-116); Anion Gap 15 mmol/L (8-16); Aspartate Amino Transferase 38 U/L (15-37); Bilirubin,Total 0.5 mg/dL (0.00-1.00); Blood Urea Nitrogen 12 mg/dL (7-18); Calcium 9.1 mg/dL (8.5-10.1); Carbon Dioxide 25 mmol/L (21-32); Chloride 96 mmol/L (98-108); Estimated Glomerular Filt Rate > 60; Glucose 103 mg/dL (70-99); Osmolality Calculated 281 mOsm/kg (285-295); Sodium 136 mmol/L (136-145); Total Protein 8.1 g/dL (6.4-8.2)
== END 2021-08-06 15:41 | disposition home or self-care (01) ==
PROVIDERS: Nurse Practitioner Family; PCP Nurse Practitioner Family; Visit Provider Nurse Practitioner Family
DX: Z87.898 Personal history of other specified conditions (principal); Z87.448 Personal history of other diseases of urinary system; M25.511 Pain in right shoulder
CPT/HCPCS: 36415; 73030; 80053; 81001; 85025; 87077; 87086; 87088

== ENCOUNTER 2021-08-10 16:35 | Emergency (ER) | payer OTHER, SELFPAY ==
[2021-08-10 16:44] VITALS: BP 162/89; PULSE 77; RESP 18; TEMP 36.3; O2SAT 97
--- NOTE | 2021-08-10 17:02 | ED.EXTPRO ---
HPI - Extremity Problem General Chief complaint: Extremity Problem,Nontraumatic Stated complaint: Dr Rahman sent over for poss blood clot Time Seen by Provider: 08/10/21 17:03 Source: patient Mode of arrival: ambulatory Limitations: no limitations History of Present Illness HPI Narrative: 60-year-old woman with a history of hypertension comes in today complaining of bilateral lower leg swelling, tenderness and mild erythema. He states her symptoms started 4 days ago. She called her doctor today who instructed to come to the emergency department for further testing to rule out VTE. Denies shortness of breath, chest pain, cough and has no personal or family history of VTE. She has had no recent surgery or immobilization and takes no hormonal therapies. She began taking an antibiotic for a GAS UTI today. MD Complaint: extremity pain and extremity swelling Onset (ago): day(s) (4) Pain Consistency: constant Location: left, right and lower extremity Quality: sharp Radiation: none Relieving factors: rest Exacerbating factors: walking and palpation Associated symptoms: denies other symptoms Related Data Allergies Allergy/AdvReac Type Severity Reaction Status Date / Time CLAUDE Inhibitors Allergy Intermediate angioedema Verified 08/10/21 16:57 amoxicillin Allergy Intermediate hives Verified 08/10/21 16:57 Cephalosporins Allergy Unknown Rash Verified 08/10/21 16:57 Penicillins Allergy Unknown Unknown Verified 08/10/21 16:57 Review of Systems Review of Systems: All systems reviewed & are unremarkable except as noted in HPI and below Constitutional: Constitutional: Denies chills and Denies fever(s) ENT: Denies nasal congestion and Denies sore throat Cardiovascular: Cardiovascular: Denies chest pain and Denies radiating jaw, neck or arm pain Respiratory: Respiratory: Denies cough, Denies dyspnea and Denies wheezing Gastrointestinal: Gastrointestinal: Denies abdominal pain, Denies diarrhea, Denies nausea and Denies vomiting Genitourinary: Genitourinary: Reports hematuria, Denies nocturia and Denies dysuria Musculoskeletal: Musculoskeletal: Denies arthralgias, Denies joint swelling and Denies muscle cramps Integumentary/Breasts: Skin/Breast: Denies pruritus, Denies erythema and Denies rash Neurologic: Denies vertigo, Denies dizziness and Denies syncope Hematologic/Lymphatic: Hematologic/Lymphatic: Denies easy bleeding and Denies easy bruising Allergic/Immunologic: Allergic/Immunologic: Denies lip swelling and Denies throat swelling PMFSH Past Medical History Medical History Acute dehydration Alcohol abuse Hypertension Overweight Screening for depression Stress at home Surgical History Surgical History History of dilation and curettage Family History Family History Father Hypertension Other Family history of alcoholism Family history of malignant neoplasm Family history of mental disorder Social History Social History Smoking status: Former smoker Tobacco type: cigarettes Alcohol intake: current Drinks per week: 3 Alcohol use details: daily Substance use: never Gender identity (if verbalized by the patient): Female Spiritual care concerns: No Exam Const: General: healthy appearing, no acute distress and alert Orientation/consciousness: patient oriented x3 Limitations: no limitations Eyes: Conjunctivae: conjunctivae normal Pupils: Equal, round and reactive pupils present EOM: EOMs intact bilaterally Resp: Effort & Inspection: normal respiratory effort and not labored Auscultation: clear to auscultation bilaterally, no rales, no rhonchi and no wheezes Cardio: Rate: regular rate Rhythm: regular rhythm Heart sounds: no murmurs Skin: General skin exam: normal color, no jaundice and no pallor Rashes: no rashes
[2021-08-10 17:19] LABS: Basophils Absolute Auto 0.07 K/mm3 (0.00-0.10); Basophils Percent Auto 0.8 % (0.0-1.0); Eosinophils Absolute Auto 0.09 K/mm3 (0.02-0.50); Hematocrit 37.6 % (35.0-49.0); Hemoglobin 12.6 g/dL (12.0-15.0); Immature Granulocyte Absolute 0.02 K/mm3 (0.00-0.00); Immature Granulocyte Percent A 0.2 % (0.0-0.0); Lymphocytes Absolute Auto 1.19 K/mm3 (1.10-4.50); Lymphocytes Percent Auto 13.5 % (18.0-42.0); Mean Corpuscular HGB Conc 33.5 g/dL (32.0-36.0); Mean Corpuscular Hemoglobin 32.3 pg (27.0-31.0); Mean Corpuscular Volume 96.4 fL (78.0-102.0); Mean Platelet Volume 9.2 fl (9.2-11.8); Monocytes Percent Auto 9.1 % (2.0-11.0); Neutrophils Absolute Auto 6.6 K/mm3 (1.7-7.2); Neutrophils Percent Auto 75.4 % (50.0-70.0); Platelet Count Result 343 K/mm3 (150-420); White Blood Count 8.8 K/mm3 (4.8-10.8)
[2021-08-10 17:30] LABS: D Dimer 0.94 mg/L (0.19-0.50)
--- NOTE | 2021-08-10 17:30 | PC.NURSE ---
ERP made aware of critical D dimer of 0.94
[2021-08-10 17:31] LABS: Alanine Aminotransferase 22 U/L (14-59); Albumin Level 3.3 g/dL (3.4-5.0); Alkaline Phosphatase 106 U/L (46-116); Anion Gap 11 mmol/L (8-16); Aspartate Amino Transferase 34 U/L (15-37); Bilirubin,Total 0.3 mg/dL (0.00-1.00); Blood Urea Nitrogen 14 mg/dL (7-18); Carbon Dioxide 27 mmol/L (21-32); Chloride 96 mmol/L (98-108); Estimated CRCL calculation 65 ml/min; Estimated Glomerular Filt Rate > 60; Glucose 110 mg/dL (70-99); Osmolality Calculated 279 mOsm/kg (285-295); Potassium 3.7 mmol/L (3.5-5.1); Sodium 134 mmol/L (136-145); Total Protein 8.3 g/dL (6.4-8.2)
[2021-08-10 17:53] LABS: Thyroid Stimulating Hormone Reflex 0.89 u/IU/mL (0.36-3.74)
[2021-08-10 18:10] VITALS: BP 158/98; PULSE 80; RESP 18; TEMP 36.4; O2SAT 100
== END 2021-08-10 18:19 | disposition home or self-care (01) ==
PROVIDERS: Emergency Provider Emergency Medicine; PCP Nurse Practitioner Family
DX: M79.89 Other specified soft tissue disorders (principal); R79.1 Abnormal coagulation profile; Z87.891 Personal history of nicotine dependence
CPT/HCPCS: 36415; 80053; 84443; 85025; 85380; 99283

== ENCOUNTER 2021-08-11 13:33 | Outpatient (CLI) | payer OTHER, SELFPAY ==
--- NOTE | ~2021-08-11 | US_ITS ---
US venous doppler [facility] DATE: 08/11/2021 14:04 INDICATION: Lower extremity pain and swelling TECHNIQUE: Real-time and color flow imaging and Doppler analysis COMPARISON: None FINDINGS: The greater saphenous veins are patent. There is spontaneous and phasic flow and normal aug mentation and color flow signal as well as normal compression of the deep veins of both lower extremi ties. Greater saphenous veins are patent. 1.7 x 6.8 x 3.8 3 cm left popliteal cyst. IMPRESSION: Left popliteal cyst No evidence of deep venous thrombosis of the lower extremities Reviewed, dictated and finalized at Location [facility]. Reviewed, dictated and finalized at location A. INSPECTION SUPERVISOR
== END 2021-08-11 13:34 | disposition home or self-care (01) ==
LOC: CHSIMG 13:34
PROVIDERS: PCP Nurse Practitioner Family; Visit Provider Emergency Medicine
DX: M79.89 Other specified soft tissue disorders (principal); R79.89 Other specified abnormal findings of blood chemistry
CPT/HCPCS: 93970

== ENCOUNTER 2021-12-01 22:22 | Emergency (ER) | payer OTHER, SELFPAY ==
[2021-12-01 22:37] VITALS: BP 147/97; PULSE 94; RESP 16; TEMP 36.6; O2SAT 98
--- NOTE | 2021-12-01 22:49 | ED.ANIMALBIT ---
HPI - Animal Bite General Chief Complaint: Animal Bite Stated Complaint: DOG BITE Time Seen by Provider: 12/01/21 22:49 Source: patient History of Present Illness HPI narrative: 61 old with hypertension presented to the a dog bite on hand middle. She presents -- 2 cm superficial laceration on the dorsum of the middle phalanx and 1.5 cm deep laceration on palmar aspect of the middle phalanx. the dog is owned by the patient and is vaccinated. The patient does not remember when she had her last tetanus immunization MD complaint: animal bite Onset (ago): hour(s) ( 1 hour ago) Animal: dog Description of animal: household pet Mechanism: bite Location: other ( left hand) Location - Extremities: Left: hand Pain description: sharp Context: unprovoked Associated symptoms: none Related Data Patient tetanus UTD: No Allergies Allergy/AdvReac Type Severity Reaction Status Date / Time CLAUDE Inhibitors Allergy Intermediate angioedema Verified 12/01/21 22:41 amoxicillin Allergy Intermediate hives Verified 12/01/21 22:41 Cephalosporins Allergy Unknown Rash Verified 12/01/21 22:41 Penicillins Allergy Unknown Unknown Verified 12/01/21 22:41 Review of Systems Review of Systems: All systems reviewed & are unremarkable except as noted in HPI and below Constitutional: Constitutional: Reports as per HPI and Reports no additional constitutional complaints Eyes: Eyes: Reports as per HPI and Reports no additional eye complaints ENT: Reports system reviewed and no additional complaints, except as documented and Reports as per HPI Cardiovascular: Cardiovascular: Reports as per HPI and Reports no additional cardiovascular complaints Respiratory: Respiratory: Reports as per HPI and Reports no additional respiratory complaints Gastrointestinal: Gastrointestinal: Reports as per HPI and Reports no additional gastrointestinal complaints Genitourinary: Genitourinary: Reports no additional female genitourinary complaints and Reports as per HPI Musculoskeletal: Musculoskeletal: Reports no additional musculoskeletal complaints and Reports as per HPI Integumentary/Breasts: Skin/Breast: Reports system reviewed and no additional complaints, except as docu Comments: deep laceration on the palmar aspect of the middle finger of the left hand. Superficial laceration on the dorsum of the middle finger of the left hand Neurologic: Reports system reviewed and no additional complaints, except as documented Psychiatric: Psychiatric: Reports no additional psychiatric complaints and Reports as per HPI Endocrine: Endocrine: Reports no additional endocrine complaints and Reports as per HPI Hematologic/Lymphatic: Hematologic/Lymphatic: Reports no additional hematologic/lymphatic complaints and Reports as per HPI Allergic/Immunologic: Allergic/Immunologic: Reports no additional allergic/immunologic complaints and Reports as per HPI PMFSH Past Medical History Medical History Acute dehydration Alcohol abuse Hypertension Overweight Screening for depression Stress at home Surgical History Surgical History History of dilation and curettage Family History Family History Father Hypertension Other Family history of alcoholism Family history of malignant neoplasm Family history of mental disorder Social History Social History Smoking status: Former smoker Tobacco type: cigarettes Alcohol intake: current Drinks per week: 3 Alcohol use details: daily Substance use: never Gender identity (if verbalized by the patient): Female Spiritual care concerns: No Exam Const: General: no acute distress and alert Orientation/consciousness: patient oriented x3 HENMT: Head: normal to inspection Mouth: Yes lip normal and Yes moist mucous membranes Eyes: Conjunctivae: conjunct
[2021-12-01] MEDS: TETANUS,DIPHTHERIA,AC PERTUSSIS ADULT 0.5 ML (ADACEL) IM (23:27)
[2021-12-01] MEDS: CLINDAMYCIN HCL 150 MG CAP 300 MG PO (23:27)
[2021-12-01 23:35] VITALS: BP 135/84; PULSE 88; RESP 16; TEMP 36.7; O2SAT 99
== END 2021-12-01 23:40 | disposition home or self-care (01) ==
PROVIDERS: Emergency Provider Internal Medicine Critical Care Medicine; PCP Nurse Practitioner Family
DX: S61.213A Laceration without foreign body of left middle finger without damage to nail, initial encounter (principal); W54.0XXA Bitten by dog, initial encounter
CPT/HCPCS: 90471; 90715; 99283; A9270

== ENCOUNTER 2022-01-18 14:07 | Outpatient (RCR) | payer OTHER, SELFPAY ==
--- NOTE | 2022-01-18 16:52 | PTOPEVAL ---
Thank you for referring Makenna Garcia to [facility].? The patient is scheduled to be seen for therapy? 2x/week for 6 visits. Please review, sign, date and return this plan of care MAYITO. I agree with and certify that the following plan of care is medically necessary. Referring Physician Date Admitting Provider: Attending Provider: YVETTE HARRIS Referring Provider: *PT Outpatient Evaluation Start: 01/18/22 12:55 Freq: Status: Active Protocol: Document 01/18/22 12:55 [facility] (Rec: 01/18/22 16:15 [facility] [id number]) Therapy Assessment Status Assessment Status Assessment Status Evaluation Outpatient Past Medical History Neurological History Hx Neurological Disorders No Significant History Cardiovascular History Hx Hypercholesterolemia Yes Hx Hypertension Yes Respiratory History Hx Bronchitis Yes Gastrointestinal History Hx Gastroesophageal Reflux Disease Yes Genitourinary History Hx Urinary Tract Infection Yes Musculoskeletal History Hx Back Injury Yes Hx Back Pain Yes Hx Other Musculoskeletal Disorders Yes: Leg reset when 5 years old. Several head injuries Hematological History Hx Hematological Disorders No Significant History Endocrine History Hx Endocrine Disorders No Significant History HEENT History Hx HEENT Disorders No Significant History Reproductive History Hx Post Menopausal Yes Psychosocial History Hx Anxiety Yes Pain History History of Any Previous or Ongoing No Significant History Instance of Pain Anesthesia History Hx Anesthesia Reactions No Significant History Evaluation Information Problem Diagnosis Pain in R hip, pain in R shoulder Onset 12/11/21 Subjective Information Pt reports that she has pain Query Text:As Reported By Patient/ in her R hip and R shoulder s/ Family p work accident on 12/11/21. She was picking up something heavy with a coworker and her foot got caught on a metal angela on the ground. Her feet got caught and she fell on her R side and her right hip. She thought everything was just bad bruising until nothing changed after a few weeks. She obtained Xray of her hip and shoulder and a further CT scan of her shoulder which found a fracture and RTC tear on her
--- NOTE | 2022-02-12 15:02 | PTOPEVAL ---
Thank you for referring Makenna Garcia to [facility].? The patient is scheduled to be seen for therapy? 1x/week for 4 visits. Please review, sign, date and return this plan of care MAYITO. I agree with and certify that the following plan of care is medically necessary. Referring Physician Date Admitting Provider: Attending Provider: YVETTE HARRIS Referring Provider: *PT Outpatient Evaluation Start: 01/18/22 12:55 Freq: Status: Active Protocol: Document 02/12/22 14:20 [facility] (Rec: 02/12/22 14:58 [facility] [id number]) Therapy Assessment Status Assessment Status Assessment Status Progress Outpatient Past Medical History Neurological History Hx Neurological Disorders No Significant History Cardiovascular History Hx Hypercholesterolemia Yes Hx Hypertension Yes Respiratory History Hx Bronchitis Yes Gastrointestinal History Hx Gastroesophageal Reflux Disease Yes Genitourinary History Hx Urinary Tract Infection Yes Musculoskeletal History Hx Back Injury Yes Hx Back Pain Yes Hx Other Musculoskeletal Disorders Yes: Leg reset when 5 years old. Several head injuries Hematological History Hx Hematological Disorders No Significant History Endocrine History Hx Endocrine Disorders No Significant History HEENT History Hx HEENT Disorders No Significant History Reproductive History Hx Post Menopausal Yes Psychosocial History Hx Anxiety Yes Pain History History of Any Previous or Ongoing No Significant History Instance of Pain Anesthesia History Hx Anesthesia Reactions No Significant History Evaluation Information Problem Diagnosis Pain in R hip, pain in R shoulder Onset 12/11/21 Subjective Information Pt reports that her shoulder Query Text:As Reported By Patient/ is quite painful today but she Family is supposed to be getting her MRI scheduled soon. Her hip is doing better slowly but she was quite sore after her last session. She is still struggling to get good sleep but it is slightly improving. Pain Assessment Timing of Pain Assessment Timing of Pain Assessment Pre-Treatment Pain Scale Pain Scale Used Numeric (1 - 10) Self Report Pain Assessment Right Shoulder(s) Reported Pain Level 4 Right Hip(s) Reported Pain Level 2 Pain Score Pain Score 4,2: Self Report Interventions Used Interventions Used By Clinicians Activity or ADL's,Education,
--- NOTE | 2022-03-19 14:21 | PTOPEVAL ---
Thank you for referring Makenna Garcia to [facility].? The patient is scheduled to be seen for therapy? ____x/week for ___ weeks. Please review, sign, date and return this plan of care MAYITO. I agree with and certify that the following plan of care is medically necessary. Referring Physician Date Admitting Provider: Attending Provider: YVETTE HARRIS Referring Provider: *PT Outpatient Evaluation Start: 01/18/22 12:55 Freq: Status: Active Protocol: Document 03/12/22 14:00 [facility] (Rec: 03/12/22 15:16 [facility] [id number]) Therapy Assessment Status Assessment Status Assessment Status Re-evaluation Outpatient Past Medical History Neurological History Hx Neurological Disorders No Significant History Cardiovascular History Hx Hypercholesterolemia Yes Hx Hypertension Yes Respiratory History Hx Bronchitis Yes Gastrointestinal History Hx Gastroesophageal Reflux Disease Yes Genitourinary History Hx Urinary Tract Infection Yes Musculoskeletal History Hx Back Injury Yes Hx Back Pain Yes Hx Other Musculoskeletal Disorders Yes: Leg reset when 5 years old. Several head injuries Hematological History Hx Hematological Disorders No Significant History Endocrine History Hx Endocrine Disorders No Significant History HEENT History Hx HEENT Disorders No Significant History Reproductive History Hx Post Menopausal Yes Psychosocial History Hx Anxiety Yes Pain History History of Any Previous or Ongoing No Significant History Instance of Pain Anesthesia History Hx Anesthesia Reactions No Significant History Evaluation Information Problem Diagnosis Pain in R hip, pain in R shoulder Onset 12/11/21 Additional Evaluation Detail quick dash = 72% functionally declined Subjective Information patient presents to therapy Query Text:As Reported By Patient/ with a new order to begin Family treatment for her R shoulder. she reports per the R shoulder she has not had treatment due to her Md restrictions. as of this date, she is cleared to begin shoulder arom, aarom, prom of the shoulder. she is not to begin strengthening at this time. Pain Assessment Timing of Pain Assessment Timing of Pain Assessment Assessment Pain Scale Pain Scale Used Numeric (1 - 10) Self Report Pain Assessment Right Knee(s) Reported Pain Level
--- NOTE | 2022-04-30 15:04 | PTOPPROG ---
Assessment and note entered by Marixa Tobar DPT Evaluation Information Assessment Status Progress Diagnosis Pain in R shoulder, pain in R hip Onset 12/11/2021 Subjective Information Pt reports that she can tell her range of motion is getting better in her R shoulder but moving her shoulder has still been very painful. She has been having a hard time sleeping. She reports that she will occasionally move her shoulder the wrong way and she will get throbbing pain in her shoulder that lasts for a few hours. She has not worked this week due to high levels of pain. She has her next follow-up with her MD on 05-14. Assessment PT Clinical Summary Pt presents to physical therapy s/p R RTC tear and continues to demonstrate pain, decreased strength , and decreased ROM. Although she is still limited in these areas, she shows improvements in strength and range of motion of her R shoulder since her most recent evaluation. She is still experiencing difficulty with reaching and lifting activities at home and is demonstrating difficulties with work activities. She will benefit from additional skilled PT to further facilitate symptom relief, improve the aforementioned impairments, and return to work and other functional activities. Plan of Care PT Services Indicated Yes Treatment Frequency and 1x week for 4 visits Duration These treatments will address the objective and functional deficits as defined above. The patient will be advanced safely and appropriately in order for the patient to progress towards his/her prior level of function. Additional exercises will be introduced and as well as a comprehensive home exercise program upon discharge, if needed, ?to ensure carryover of functional gains achieved in the clinic. This treatment plan has been reviewed and agreement upon by the patient.
== END 2022-04-30 21:00 | disposition still patient (30) ==
LOC: CHSPT 14:07
DX: S49.91XA Unspecified injury of right shoulder and upper arm, initial encounter (principal); M25.511 Pain in right shoulder; M25.551 Pain in right hip
CPT/HCPCS: 97014; 97110; 97112; 97140; 97161; 97164; G0283

== ENCOUNTER 2022-05-07 14:15 | Outpatient (RCR) | payer OTHER, SELFPAY ==
--- NOTE | 2022-05-28 14:58 | PTOPDC ---
Assessment and note entered by Marixa Tobar DPT Evaluation Information Assessment Status Discharge Diagnosis Pain in R shoulder, pain in R hip Onset 12/11/2021 Subjective Information Pt reports that pain has been generally about the same. She has surgery on 06-16 for her shoulder. Pt reports continued difficulty with reaching and lifting activities. Reported Pain Level Pain Score 3: Self Report Assessment PT Clinical Summary Pt presents to physical therapy without significant improvements in pain, strength, or ROM since her most recent evaluation in her R shoulder. She has her R RTC repair scheduled for 06/16/2022. She was educated to continue her HEP until surgery to maintain her mobility and strength prior to the operation. She is to be discharged from skilled PT to [facility] at this time and is to follow-up with her MD on her POC going forward including potential for PT after surgery.
== END 2022-05-28 15:31 | disposition home or self-care (01) ==
LOC: CHSPT 14:15
DX: S49.91XA Unspecified injury of right shoulder and upper arm, initial encounter (principal); M25.511 Pain in right shoulder; M25.551 Pain in right hip
CPT/HCPCS: 97014; 97110; 97140; G0283

== ENCOUNTER 2022-05-14 15:06 | Outpatient (CLI) | payer OTHER, SELFPAY ==
--- NOTE | ~2022-05-14 | XR_ITS ---
XR knee RT 2V 05/14/2022 15:27 Indication: Right knee pain Procedure: 2 views right knee Comparison: No prior studies for comparison. Findings: There is moderate tricompartment osteoarthritis. Small joint effusion. No fracture or traum atic malalignment. Normal mineralization. Impression: 1: Moderate tricompartment osteoarthritis of the right knee. Reviewed, dictated and finalized at location A. Impression: 1: Moderate tricompartment osteoarthritis of the right knee.
--- NOTE | ~2022-05-14 | XR_ITS ---
XR knee LT 2V 05/14/2022 15:28 Indication: Left knee pain Procedure: 2 views left knee Comparison: 01/05/2017 Findings: There is moderate osteoarthritis of the left knee. No fracture or traumatic malalignment. N o significant joint effusion. No foreign bodies. Impression: 1: Moderate tricompartment osteoarthritis of the left knee. Reviewed, dictated and finalized at location A. Impression: 1: Moderate tricompartment osteoarthritis of the left knee.
== END 2022-05-14 15:07 | disposition home or self-care (01) ==
LOC: CHSIMG 15:09
PROVIDERS: PCP Nurse Practitioner Family; Visit Provider Nurse Practitioner Family
DX: M25.561 Pain in right knee (principal); M25.562 Pain in left knee
CPT/HCPCS: 73560

== ENCOUNTER 2022-06-10 18:01 | Outpatient (CLI) | payer OTHER, SELFPAY ==
--- NOTE | ~2022-06-10 | XR_ITS ---
EXAMINATION: XR chest 2V DATE: 06/10/2022 18:27 INDICATION: Encounter for other preprocedural examination TECHNIQUE: PA and lateral views of the chest are obtained. COMPARISON: 04/06/2021 FINDINGS: The lungs are free of acute opacities. No pleural effusion or pneumothorax. The cardiomedia stinal silhouette is normal. There is mild thoracic spondylosis. IMPRESSION: 1. No acute cardiopulmonary abnormality. Reviewed, dictated and finalized at location F. TY EQUIPMENT TESTER
[2022-06-10 18:24] LABS: Basophils Absolute Auto 0.08 K/mm3 (0.00-0.10); Basophils Percent Auto 1.4 % (0.0-1.0); Eosinophils Percent Auto 1.7 % (1.0-6.0); Hematocrit 37.8 % (35.0-49.0); Immature Granulocyte Absolute 0.01 K/mm3 (0.00-0.00); Immature Granulocyte Percent A 0.2 % (0.0-0.0); Lymphocytes Absolute Auto 1.61 K/mm3 (1.10-4.50); Lymphocytes Percent Auto 27.3 % (18.0-42.0); Mean Corpuscular HGB Conc 34.4 g/dL (32.0-36.0); Mean Corpuscular Hemoglobin 33.9 pg (27.0-31.0); Mean Corpuscular Volume 98.7 fL (78.0-102.0); Mean Platelet Volume 9.7 fl (9.2-11.8); Monocytes Absolute Auto 0.58 K/mm3 (0.10-0.90); Monocytes Percent Auto 9.8 % (2.0-11.0); Neutrophils Absolute Auto 3.5 K/mm3 (1.7-7.2); Neutrophils Percent Auto 59.6 % (50.0-70.0); Platelet Count Result 229 K/mm3 (150-420); Red Blood Count 3.83 M/mm3 (4.20-5.40); Red Cell Distribution Width 12.7 % (11.6-14.4); White Blood Count 5.9 K/mm3 (4.8-10.8)
[2022-06-10 18:58] LABS: Appearance Urine Clear (Clear); Bilirubin Urine Negative (Negative); Blood Urine 1+ (Negative); Glucose Urine UA Negative (Negative); Ketones Urine Negative (Negative); Leukocyte Esterase Ur Trace LEU/UL (Negative); Nitrate Urine Negative (Negative); Protein Urine Negative (Negative); Specific Grav Ur <= 1.005 (1.010-1.020); Urobilinogen Urine 0.2 mg/dL (0.2-1.0)
[2022-06-10 19:02] LABS: Anion Gap 11 mmol/L (8-16); Blood Urea Nitrogen 11 mg/dL (7-18); Carbon Dioxide 27 mmol/L (21-32); Chloride 98 mmol/L (98-108); Potassium 4.4 mmol/L (3.5-5.1); Sodium 136 mmol/L (136-145)
[2022-06-10 19:03] LABS: Alanine Aminotransferase 41 U/L (14-59); Albumin Level 3.8 g/dL (3.4-5.0); Alkaline Phosphatase 100 U/L (46-116); Aspartate Amino Transferase 57 U/L (15-37); Bilirubin,Total 0.3 mg/dL (0.00-1.00); Calcium 9.1 mg/dL (8.5-10.1); Estimated Glomerular Filt Rate > 60; Glucose 93 mg/dL (70-99); Osmolality Calculated 281 mOsm/kg (285-295)
[2022-06-10 19:09] LABS: Add Urine Microscopic? YES; Bacteria Urine None seen /hpf; Color Urine Light Yellow (Yellow); RBC Urine 0-2 /hpf (0-2); Renal Epithelial Cells Urine Rare /hpf; Squamous Epithelial Cell Urine Rare /hpf (Few); WBC Urine 0-3 /hpf (0-3)
== END 2022-06-10 18:02 | disposition home or self-care (01) ==
LOC: CHSIMG 18:03
PROVIDERS: PCP Nurse Practitioner Family; Visit Provider Nurse Practitioner Family
DX: Z01.818 Encounter for other preprocedural examination (principal)
CPT/HCPCS: 36415; 71046; 80053; 81001; 85025

== ENCOUNTER 2022-06-14 15:17 | Outpatient (CLI) | payer OTHER, SELFPAY ==
[2022-06-14 16:20] LABS: SARS-CoV-2 RNA PCR Negative (Negative)
== END 2022-06-14 15:18 | disposition home or self-care (01) ==
LOC: CHSLAB 15:21
PROVIDERS: PCP Nurse Practitioner Family
DX: Z01.812 Encounter for preprocedural laboratory examination (principal); Z20.822 Contact with and (suspected) exposure to COVID-19
CPT/HCPCS: U0003; U0005

== ENCOUNTER 2022-06-14 22:52 | Emergency (ER) | payer OTHER, SELFPAY ==
[2022-06-14] VITALS (7 sets, daily range): BP systolic 163–196; BP diastolic 96–110; PULSE 99; RESP 16; TEMP 37; O2SAT 96–98
--- NOTE | 2022-06-14 23:48 | ED.GENADULT ---
HPI - General Adult General Chief complaint: Unspecified Stated complaint: high blood pressure Time Seen by Provider: 06/14/22 22:55 Source: patient and RN notes reviewed Mode of arrival: ambulatory Limitations: no limitations History of Present Illness complaint: elevated BP Onset (ago): hour(s) (23) Radiation: non-radiation and other (no acute pain) Severity: mild Pain Consistency: other (no pain) Relieving factors: none Exacerbating factors: none Associated symptoms: denies other symptoms Related Data Home Medications Medication Instructions Recorded Confirmed hydrochlorothiazide 12.5 mg capsule 12.5 mg DAILY PRN Hypertension 06/14/22 06/14/22 Allergies Allergy/AdvReac Type Severity Reaction Status Date / Time CLAUDE Inhibitors Allergy Intermediate angioedema Verified 06/14/22 23:09 amoxicillin Allergy Intermediate hives Verified 06/14/22 23:09 Cephalosporins Allergy Unknown Rash Verified 06/14/22 23:09 Penicillins Allergy Unknown Unknown Verified 06/14/22 23:09 Review of Systems Review of Systems: All systems reviewed & are unremarkable except as noted in HPI and below Constitutional: Constitutional: Reports no additional constitutional complaints Eyes: Eyes: Reports no additional eye complaints ENT: Reports system reviewed and no additional complaints, except as documented Cardiovascular: Cardiovascular: Reports no additional cardiovascular complaints Respiratory: Respiratory: Reports no additional respiratory complaints Gastrointestinal: Gastrointestinal: Reports no additional gastrointestinal complaints Genitourinary: Genitourinary: Reports no additional female genitourinary complaints Musculoskeletal: Musculoskeletal: Reports no additional musculoskeletal complaints Integumentary/Breasts: Skin/Breast: Reports system reviewed and no additional complaints, except as docu Neurologic: Reports system reviewed and no additional complaints, except as documented Psychiatric: Psychiatric: Reports no additional psychiatric complaints Endocrine: Endocrine: Reports no additional endocrine complaints Hematologic/Lymphatic: Hematologic/Lymphatic: Reports no additional hematologic/lymphatic complaints Allergic/Immunologic: Allergic/Immunologic: Reports no additional allergic/immunologic complaints PMFSH Past Medical History Medical History Acute dehydration Alcohol abuse Hypertension Overweight Screening for depression Stress at home Surgical History Surgical History History of dilation and curettage Family History Family History Father Hypertension Other Family history of alcoholism Family history of malignant neoplasm Family history of mental disorder Social History Social History Smoking status: Former smoker Tobacco type: cigarettes Alcohol intake: current Drinks per week: 3 Alcohol use details: daily Substance use: never Lack of Transportation: No Lack of Food: Never True Current Housing: I Have Housing Concerned About Future Housing: No Difficulty Paying Gas/Electric Bills: No Difficulty Paying for Meds: No Currently Unemployed: No Education: High School Diploma/GED Difficulty w/ Childcare or Family Care: No Gender identity (if verbalized by the patient): Female Spiritual care concerns: No Exam Const: General: no acute distress and well nourished Nutritional Appearance: well nourished Orientation/consciousness: patient oriented x3 Limitations: no limitations HENMT: Head: normal to inspection Ears: external ears normal, TM's normal bilaterally and EAC's normal Face/Nose/Sinus: Normal external nose present, Normal nares present, normal facial exam and sinuses nontender Face and sinus: normal facial exam and sinuses nontender Mouth: Yes Normal oral and palatal mucosa p
[2022-06-15 00:02] VITALS: BP 152/110; PULSE 81; RESP 16; O2SAT 96
[2022-06-15 00:16] VITALS: BP 154/94
[2022-06-15] MEDS: cloNIDine HCL 0.2 MG TABLET PO (00:28)
[2022-06-15 01:02] VITALS: BP 173/97; PULSE 75; RESP 16; O2SAT 98
[2022-06-15] MEDS: cloNIDine HCL 0.1 MG TABLET 0.2 MG PO (01:17)
[2022-06-15 01:59] VITALS: BP 140/88; PULSE 78; RESP 18; TEMP 37; O2SAT 98
== END 2022-06-15 02:12 | disposition home or self-care (01) ==
LOC: CHSED 06-15 02:10
PROVIDERS: Emergency Provider Emergency Medicine
DX: I10 Essential (primary) hypertension (principal); Z87.891 Personal history of nicotine dependence
CPT/HCPCS: 99283; A9270

== ENCOUNTER 2022-08-09 10:02 | Outpatient (CLI) | payer OTHER, SELFPAY ==
--- NOTE | 2022-08-09 10:09 | EST_ITS ---
Patient Info Name: Makenna Garcia Age: 61 years : 1960 Gender: Female Ht: 65 in Wt: 200 lbs BSA: 2.07 m2 HR: 101 bpm BP: 155 / 93 mmHg Heart Rhythm: Tachycardia Technical Quality: Good Exam Date: 08/09/2022 11:12 AM Exam Location: [facility] Patient Status: Outpatient Admit Date: 08/09/2022 Staff Ordering Physician: Marcus Valderrama DO Attending Provider: Marcus Valderrama DO Exercise Technologist: Elizabeth Harris CRT Exercise Physician: Alesia Douglas CEP Exam Type: CA stress test treadmill w NM Study Info Indications Palpitations - An exercise stress test was performed. History/Risk Factors Hypertension: Yes Obesity: Yes Tobacco Use: Current - Every Day If Current - Every Day \T\ Cigarettes, Amount: Light Tobacco Use (<10/day) History/Risk Factors Palpitations, Obesity, Hypertension, Smoker. Summary 1. 1. Negative Roque exercise stress test for ischemic ST changes by ECG criteria. 2. 2. Reduced functional capacity, achieving 7 METs of workload. 3. 3. Baseline hypertension. 4. 4. Appropriate HR response to exercise. 5. 5. Appropriate HR recovery at 1 minute post exercise. 6. 6. Nuclear scan to follow and will be reported separately. Please correlate with it. Protocol: Roque Stress ECG Details Stage: REST Duration (min): 1 min : 18 sec Speed (mph): 0.0 Grade (%): 0 HR (bpm): 101 SBP (mmHg): 155 DBP (mmHg): 93 METS: --- Stage: REST Duration (min): 6 min : 33 sec Speed (mph): 0.0 Grade (%): 0 HR (bpm): 109 SBP (mmHg): 155 DBP (mmHg): 93 METS: --- Stage: STAGE 1 Duration (min): 1 min : 0 sec Speed (mph): 1.7 Grade (%): 10 HR (bpm): 124 SBP (mmHg): 155 DBP (mmHg): 93 METS: --- Stage: STAGE 1 Duration (min): 2 min : 0 sec Speed (mph): 1.7 Grade (%): 10 HR (bpm): 137 SBP (mmHg): 155 DBP (mmHg): 93 METS: --- Stage: STAGE 1 Duration (min): 3 min : 0 sec Speed (mph): 1.7 Grade (%): 10 HR (bpm): 143 SBP (mmHg): 147 DBP (mmHg): 61 METS: --- Stage: STAGE 2 Duration (min): 1 min : 0 sec Speed (mph): 2.5 Grade (%): 12 HR (bpm): 153 SBP (mmHg): 147 DBP (mmHg): 61 METS: --- Stage: STAGE 2 Duration (min): 1 min : 46 sec Speed (mph): 2.5 Grade (%): 12 HR (bpm): 156 SBP (mmHg): 178 DBP (mmHg): 96 METS: --- Stage: RECOVERY Duration (min): 0 min : 13 sec Speed (mph): 1.5 Grade (%): 0 HR (bpm): 158 SBP (mmHg): 178 DBP (mmHg): 96 METS: --- Stage: RECOVERY Duration (min): 1 min : 13 sec Speed (mph): 0.0 Grade (%): 0 HR (bpm): 150 SBP (mmHg): 178 DBP (mmHg): 96 METS: --- Stage: RECOVERY Duration (min): 2 min : 13 sec Speed (mph): 0.0 Grade (%): 0 HR (bpm): 133 SBP (mmHg): 167 DBP (mmHg): 89 METS: --- Stage: RECOVERY Duration (min): 3 min : 13 sec Speed (mph): 0.0 Grade (%):
--- NOTE | 2022-08-09 13:14 | WPDCARIOSTRE ---
Nuclear Stress Test INDICATIONS Indications: Dyspnea PROCEDURE Procedure Performed: Myocardial Perf Spect-Multi Procedure: Patient exercised on a standard Roque protocol and after achieving target heart rate she was injected with 33.0 mCi of cardiolyte. Multiple tomographic images were obtained. These are of good quality. There is no evidence of perfusion defects with stress imaging. A separate resting images were obtained after patient was injected with 10.2 mCi of cardiolyte. Multiple tomographic images were obtained. These are of good quality. There is no evidence of perfusion defects with rest imaging CONCLUSION Conclusion: 1. Normal myocardial perfusion imaging demonstrating no perfusion defects with stress or rest imaging. 2. No evidence of reversible ishemia. 3. Left ventriculogram demonstrates normal measured ejection fraction of 67% with no wall motion abnormalities. 4. TID score 1.21 is normal.
== END 2022-08-09 10:03 | disposition home or self-care (01) ==
LOC: CHSCARD 10:03
PROVIDERS: PCP Family Medicine; Visit Provider Family Medicine
DX: R06.00 Dyspnea, unspecified (principal); R68.89 Other general symptoms and signs
CPT/HCPCS: 78452; 93017; A9502

== ENCOUNTER 2023-01-13 17:51 | Outpatient (CLI) | payer OTHER, SELFPAY ==
[2023-01-13 18:51] LABS: SARS-CoV-2 RNA PCR Negative (Negative)
== END 2023-01-13 17:52 | disposition home or self-care (01) ==
LOC: CHSLAB 17:52
PROVIDERS: PCP Family Medicine; Visit Provider Family Medicine
DX: Z20.822 Contact with and (suspected) exposure to COVID-19 (principal)
CPT/HCPCS: 87635

== ENCOUNTER 2023-04-16 16:10 | Outpatient (CLI) | payer OTHER, SELFPAY ==
--- NOTE | ~2023-04-16 | XR_ITS ---
EXAMINATION: XR chest 2V Exam Date/Time: 04/16/2023 16:28 CDT HISTORY: PREOP FOR ROTATOR CUFF SURG 04/22 HX HTN Comparison: 06/10/2022. RESULT: Lines, tubes, and devices: None. Lungs and pleura: Clear. Cardiomediastinal silhouette: Stable. Other: No acute osseous or upper abdominal finding. IMPRESSION: No acute cardiopulmonary process. Reviewed, dictated and finalized at location K.
[2023-04-16 17:10] LABS: Basophils Absolute Auto 0.06 K/mm3 (0.00-0.10); Basophils Percent Auto 1.1 % (0.0-1.0); Eosinophils Absolute Auto 0.21 K/mm3 (0.02-0.50); Eosinophils Percent Auto 3.9 % (1.0-6.0); Hematocrit 43.9 % (35.0-49.0); Hemoglobin 14.5 g/dL (12.0-15.0); Immature Granulocyte Absolute 0.01 K/mm3 (0.00-0.00); Immature Granulocyte Percent A 0.2 % (0.0-0.0); Immature Platelet Fraction Pct 12.8 % (1.0-7.0); Lymphocytes Absolute Auto 1.09 K/mm3 (1.10-4.50); Lymphocytes Percent Auto 20.4 % (18.0-42.0); Mean Corpuscular Hemoglobin 33.5 pg (27.0-31.0); Mean Corpuscular Volume 101.4 fL (78.0-102.0); Mean Platelet Volume 11.3 fl (9.2-11.8); Monocytes Absolute Auto 0.48 K/mm3 (0.10-0.90); Neutrophils Absolute Auto 3.5 K/mm3 (1.7-7.2); Neutrophils Percent Auto 65.4 % (50.0-70.0); Platelet Count Result 150 K/mm3 (150-420); Red Blood Count 4.33 M/mm3 (4.20-5.40); White Blood Count 5.3 K/mm3 (4.8-10.8)
[2023-04-16 17:48] LABS: Appearance Urine Clear (Clear); Bilirubin Urine Negative (Negative); Blood Urine 2+ (Negative); Color Urine Light Yellow (Yellow); Glucose Urine UA Negative (Negative); Ketones Urine Negative (Negative); Leukocyte Esterase Ur Negative LEU/UL (Negative); Nitrate Urine Negative (Negative); Protein Urine Negative (Negative); Urobilinogen Urine 0.2 mg/dL (0.2-1.0)
[2023-04-16 17:49] LABS: Alanine Aminotransferase 35 U/L (14-59); Albumin Level 3.7 g/dL (3.4-5.0); Alkaline Phosphatase 104 U/L (46-116); Anion Gap 14 mmol/L (8-16); Aspartate Amino Transferase 55 U/L (15-37); Bilirubin,Total 0.6 mg/dL (0.00-1.00); Blood Urea Nitrogen 8 mg/dL (7-18); Calcium 9.4 mg/dL (8.5-10.1); Carbon Dioxide 23 mmol/L (21-32); Chloride 99 mmol/L (98-108); Estimated Glomerular Filt Rate > 60; Glucose 97 mg/dL (70-99); Osmolality Calculated 280 mOsm/kg (285-295); Potassium 4.5 mmol/L (3.5-5.1); Sodium 136 mmol/L (136-145)
[2023-04-16 17:50] LABS: Add Urine Microscopic? YES
[2023-04-16 17:56] LABS: Amorphous Sediment Urine Few; Mucus Urine Few /lpf; Renal Epithelial Cells Urine Few /hpf; Squamous Epithelial Cell Urine Moderate /hpf (Few)
== END 2023-04-16 16:11 | disposition home or self-care (01) ==
LOC: CHSLAB 16:16
PROVIDERS: PCP Family Medicine; Visit Provider Nurse Practitioner Family
DX: Z01.818 Encounter for other preprocedural examination (principal)
CPT/HCPCS: 36415; 71046; 80053; 81001; 85025; 85055

== ENCOUNTER 2023-04-19 13:43 | Outpatient (CLI) | payer OTHER, SELFPAY ==
--- NOTE | 2023-04-19 13:53 | ECG_ITS ---
Measurements Intervals [place] Rate: 81 P: 56 SD: 177 QRS: 61 QRSD: 98 T: 52 QT: 383 QTc: 447 Interpretive Statements SINUS RHYTHM DELAYED PRECORDIAL R/S TRANSITION NONSPECIFIC T-WAVE ABNORMALITY- ANT/HIGH LAT LEADS BASELINE ARTIFACT- I, II, III, V4-V6 BORDERLINE ECG COMPARED TO ECG 12/21/2019 12:59:38 NO SIGNIFICANT CHANGES Electronically Signed On 04-19-2023 14:30:14 CDT by Bobby Calvillo D.O.
== END 2023-04-19 13:44 | disposition home or self-care (01) ==
PROVIDERS: PCP Nurse Practitioner Family; Visit Provider Nurse Practitioner Family
DX: Z01.818 Encounter for other preprocedural examination (principal); R94.31 Abnormal electrocardiogram [ECG] [EKG]
CPT/HCPCS: 93005

== ENCOUNTER 2023-05-10 09:54 | Outpatient (RCR) | payer OTHER, SELFPAY ==
--- NOTE | 2023-05-10 10:57 | OPREHPOC ---
Outpatient Therapy Plan of Care This is a Multidisciplinary Plan of Care that may contain components documented by all disciplines (PT, OT, and ST.) PT Problem 1 PT Problem #1 Knowledge Deficit PT Goal 1 Goal The patient will demonstrate independence in a home exercise program to continue after discharge from formal PT. Target Visit 24 PT Problem 2 PT Problem #2 Pain PT Goal 1 Goal The patient will report no greater than 5/10 right shoulder pain with PROM to progress to AROM and eventually strengthening. Target Visit 12 PT Goal 2 Goal The patient will report no greater than 3/10 right shoulder pain with lifting and carrying. Target Visit 24 PT Problem 3 PT Problem #3 Impaired Range of Motion PT Goal 1 Goal The patient will demonstrate 150 degrees of right shoulder flexion PROM and 50 degrees of right shoulder ER PROM to progress to AROM. Target Visit 12 PT Goal 2 Goal The patient will demonstrate 160 degrees of right shoulder flexion AROM to improve overhead lifting ability. The patient will demonstrate right shoulder ER functional ROM to the occiput to perform grooming activities. The patient will demonstrate right shoulder IR functional ROM to L1 to perform dressing activities. Target Visit 24 PT Problem 4 PT Problem #4 Impaired Strength PT Goal 1 Goal The patient will demonstrate 4/5 right shoulder strength to improve the ability to lift, carry, push, and pull for daily and work tasks. Target Visit 24 PT Problem 5 PT Problem #5 Impaired Functional Mobil PT Goal 1 Goal The patient will demonstrate less than 25% self perceived disability per the Quick DASH questionnaire. Target Visit 24
--- NOTE | 2023-05-10 10:57 | PTOPEVAL1 ---
Assessment and note entered by Nelia Perez, PT Evaluation Information Assessment Status Evaluation Diagnosis s/p R RCR, SAD, Onset 04/22/23 Subjective Information Makenna Garcia reports she had right shoulder surgery on 04/22/23. She reports she injured her right shoulder at work on 12/11/21. She was helping lift and move pallets and she tripped on a ledge in the floor and landed on her right side. She tried PT last year after having a CT scan and MRI that showed a rotator cuff tear. She was supposed to have surgery in May 2022 but she had other health issues come up and she was hospitalized. She had a repeat MRI in February 2023 and then surgery on 04/22/23. She has been in a sling since surgery and was told she could start taking it off at home last week when she had a follow up appointment. She is right hand dominant and is so having difficulty with washing and brushing her hair. 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 Reported Pain Level Pain Score 2: Self Report Assessment PT Clinical Summary Makenna Garcia presents 2.5 weeks s/p R RCR, SAD, BT, and aplasty. She is having difficulty with using the right UE for bathing, grooming, performing professor/nurse anesthetist, carrying, and lifting . She objectively demonstrates decreased and painful right shoulder PROM. Right shoulder AROM and strength were not tested due to post op precautions however, it is likely they are decreased as well. She will benefit from skilled PT to address these limitations. Plan of Care Interventions Electrical Stimulation,Hot Pack/Cold Pack,Manual Therapy,Neuro Re-education,Patient/Caregiver Educati,Therapeutic Activities,Therapeutic Exercise PT Services Indicated Yes Treatment Frequency and 3 times a week for 12 visits Duration These treatments will address the objective and functional deficits as defined above. The patient will be advanced safely and appropriately in order for the patient to progress towards his/her prior level of function. Additional exercises will be introduced and as well as a comprehensive home exercise program upon discharge, if needed, ?to ensure carryover of functional gains achieved in the clinic. This treatment plan has been reviewed and agreement upon by the patient.
[2023-06-01 14:01] VITALS: BP_SYST 90
--- NOTE | 2023-06-01 14:55 | OPREHPOC ---
Outpatient Therapy Plan of Care This is a Multidisciplinary Plan of Care that may contain components documented by all disciplines (PT, OT, and ST.) PT Problem 1 PT Problem #1 Knowledge Deficit PT Goal 1 Goal The patient will demonstrate independence in a home exercise program to continue after discharge from formal PT. Target Visit 24 Progress Partially Met PT Problem 2 PT Problem #2 Pain PT Goal 1 Goal The patient will report no greater than 5/10 right shoulder pain with PROM to progress to AROM and eventually strengthening. Target Visit 12 Progress Not Met PT Goal 2 Goal The patient will report no greater than 3/10 right shoulder pain with lifting and carrying. Target Visit 24 Progress Not Met PT Problem 3 PT Problem #3 Impaired Range of Motion PT Goal 1 Goal The patient will demonstrate 150 degrees of right shoulder flexion PROM and 50 degrees of right shoulder ER PROM to progress to AROM. Target Visit 12 Progress Partially Met PT Goal 2 Goal The patient will demonstrate 160 degrees of right shoulder flexion AROM to improve overhead lifting ability. The patient will demonstrate right shoulder ER functional ROM to the occiput to perform grooming activities. The patient will demonstrate right shoulder IR functional ROM to L1 to perform dressing activities. Target Visit 24 Progress Not Met PT Problem 4 PT Problem #4 Impaired Strength PT Goal 1 Goal The patient will demonstrate 4/5 right shoulder strength to improve the ability to lift, carry, push, and pull for daily and work tasks. Target Visit 24 Progress Not Met PT Problem 5 PT Problem #5 Impaired Functional Mobil PT Goal 1 Goal The patient will demonstrate less than 25% self perceived disability per the Quick DASH questionnaire. Target Visit
--- NOTE | 2023-06-01 14:55 | PTOPPROG ---
Assessment and note entered by JT File, PT Evaluation Information Assessment Status Progress Diagnosis s/p R RCR, SAD, Onset 04/22/23 Subjective Information Makenna Garcia reports she had right shoulder surgery on 04/22/23. She reports she injured her right shoulder at work on 12/11/21. She was helping lift and move pallets and she tripped on a ledge in the floor and landed on her right side. She tried PT last year after having a CT scan and MRI that showed a rotator cuff tear. She was supposed to have surgery in May 2022 but she had other health issues come up and she was hospitalized. She had a repeat MRI in February 2023 and then surgery on 04/22/23. She has been in a sling since surgery and was told she could start taking it off at home last week when she had a follow up appointment. She is right hand dominant and is so having difficulty with washing and brushing her hair. 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 Assessment PT Clinical Summary mrs. garcia presents to skilled PT for her 10th skilled PT visit this date. she presents with improvement in passive shoulder rom. she continues to have pain in the R shoulder at rest at times. however, she is overall greatly improved since her initial evaluation. she has made progress towards goals, but would benefit from continued skilled PT to further addess deficits to achieve all goals for skilled PT and return to prior level work performance. Plan of Care Interventions Electrical Stimulation,Hot Pack/Cold Pack,Manual Therapy,Neuro Re-education,Patient/Caregiver Educati,Therapeutic Activities,Therapeutic Exercise PT Services Indicated Yes Treatment Frequency and continue skilled PT 3x weekly for 2 more visits Duration per initial POC and then an additional 3x weekly for 12 more visits to allow for beginning of aarom /arom/strengthening phase of skilled rehab (14 more visits total after today). These treatments will address the objective and functional deficits as defined above. The patient will be advanced safely and appropriately in order for the patient to progress towards his/her prior level of function. Additional exercises will be introduced and as well as a comprehensive home exercise program upon discharge, if needed, ?to ensure carryover of functional gains achieved in the clinic. This treatment plan has been reviewed and agreement upon by the patient.
[2023-07-11 15:10] VITALS: BP_SYST 123
--- NOTE | 2023-07-11 16:31 | OPREHPOC ---
Outpatient Therapy Plan of Care This is a Multidisciplinary Plan of Care that may contain components documented by all disciplines (PT, OT, and ST.) PT Problem 1 PT Problem #1 Knowledge Deficit PT Goal 1 Goal The patient will demonstrate independence in a home exercise program to continue after discharge from formal PT. Target Visit 36 Progress Partially Met PT Problem 2 PT Problem #2 Pain PT Goal 1 Goal The patient will report no greater than 5/10 right shoulder pain with PROM to progress to AROM and eventually strengthening. Target Visit 36 Progress Not Met Comment progressing PT Goal 2 Goal The patient will report no greater than 3/10 right shoulder pain with lifting and carrying. Target Visit 36 Progress Not Met Comment progressing PT Problem 3 PT Problem #3 Impaired Range of Motion PT Goal 1 Goal The patient will demonstrate 150 degrees of right shoulder flexion PROM and 50 degrees of right shoulder ER PROM to progress to AROM. Target Visit 24 Progress Met PT Goal 2 Goal The patient will demonstrate 160 degrees of right shoulder flexion AROM to improve overhead lifting ability. The patient will demonstrate right shoulder ER functional ROM to the occiput to perform grooming activities. The patient will demonstrate right shoulder IR functional ROM to L1 to perform dressing activities. Target Visit 36 Progress Not Met Comment progressing PT Problem 4 PT Problem #4 Impaired Strength PT Goal 1 Goal The patient will demonstrate 4/5 right shoulder strength to improve the ability to lift, carry, push, and pull for daily and work tasks. Target Visit 36 Progress Not Met Comment progressing PT Problem 5 PT Pro
--- NOTE | 2023-07-11 16:31 | PTOPREEVAL ---
Assessment and note entered by Nyasia Eugene DPT Evaluation Information Assessment Status Re-evaluation Diagnosis s/p R RCR, SAD, Onset 04/22/23 Subjective Information Patient returns to MD on 07/14/23. She reports she has called MD to inform them of her fall and they will be doing x-rays at her appointment. She reports reaching out to the side continues to be difficult. She reports she has tightness on the outside of her arm. She reports she is doing light desk duty at work. Reported Pain Level Pain Score 2: Self Report Assessment PT Clinical Summary mrs. arellano presents to skilled PT for her 24th skilled PT visit this date. She has made progress with L shoulder strength and ROM at this time. She continues to have pain and reports of popping following fall. She reports she has called MD office to inform them of fall. Patient is currently working light duty at this time. She would benefit from continued skilled PT to address remaining impairments and return to MD at full duty per MD recommendations. Plan of Care Interventions Electrical Stimulation,Hot Pack/Cold Pack,Manual Therapy,Neuro Re-education,Patient/Caregiver Educati,Therapeutic Activities,Therapeutic Exercise PT Services Indicated Yes Treatment Frequency and continue 2x weekly for 12 visits as directed by MD Duration These treatments will address the objective and functional deficits as defined above. The patient will be advanced safely and appropriately in order for the patient to progress towards his/her prior level of function. Additional exercises will be introduced and as well as a comprehensive home exercise program upon discharge, if needed, ?to ensure carryover of functional gains achieved in the clinic. This treatment plan has been reviewed and agreement upon by the patient.
== END 2023-08-08 15:41 | disposition still patient (30) ==
LOC: CHSPT 09:54
DX: M75.101 Unspecified rotator cuff tear or rupture of right shoulder, not specified as traumatic (principal); M25.511 Pain in right shoulder
CPT/HCPCS: 97014; 97110; 97150; 97161; 97530; G0283

== ENCOUNTER 2023-08-09 15:45 | Outpatient (RCR) | payer OTHER, SELFPAY ==
[2023-08-09 15:42] VITALS: BP_SYST 123
--- NOTE | 2023-08-23 16:37 | PCPTNOTE ---
08/23/23: Pt cancelled today's appointment due to being unable to get out of work on time. -Nelia Perez, PT
--- NOTE | 2023-08-26 15:35 | PCPTNOTE ---
Patient cancelled session today due to illness.
--- NOTE | 2023-09-02 17:12 | OPREHPOC ---
Outpatient Therapy Plan of Care This is a Multidisciplinary Plan of Care that may contain components documented by all disciplines (PT, OT, and ST.) PT Problem 1 PT Problem #1 Knowledge Deficit PT Goal 1 Goal The patient will demonstrate independence in a home exercise program to continue after discharge from formal PT. Target Visit 48 Progress Partially Met Comment patient educated to progress weight lifting activities as she has no restrictions any longer. PT Problem 2 PT Problem #2 Pain PT Goal 1 Goal The patient will report no greater than 5/10 right shoulder pain with PROM to progress to AROM and eventually strengthening. Target Visit 36 Progress Met Comment . PT Goal 2 Goal The patient will report no greater than 2/10 right shoulder pain with lifting and carrying. Target Visit 48 Progress Not Met Comment progressing PT Problem 3 PT Problem #3 Impaired Range of Motion PT Goal 1 Goal The patient will demonstrate 150 degrees of right shoulder flexion PROM and 50 degrees of right shoulder ER PROM to progress to AROM. Target Visit 24 Progress Met PT Goal 2 Goal The patient will demonstrate 160 degrees of right shoulder flexion AROM to improve overhead lifting ability. not met The patient will demonstrate right shoulder ER functional ROM to the occiput to perform grooming activities. met The patient will demonstrate right shoulder IR functional ROM to L1 to perform dressing activities. not met Target Visit 48 Progress Not Met Comment progressing PT Problem 4 PT Problem #4 Impaired Strength PT Goal 1 Goal The patient will demonstrate 4+/5 right shoulder strength to improve the ability to lift, carry, push, and pull for daily and work tasks. Target Visit 48 Progress
--- NOTE | 2023-09-02 17:12 | PTOPREEVAL ---
Assessment and note entered by JT File, PT Evaluation Information Assessment Status Re-evaluation Diagnosis s/p R RCR, SAD, Onset 04/22/23 Subjective Information patient reports she has to be able to lift 40- 50lbs overhead to return to prior level work duties. she reports she does not feel she can do this yet. she reports the shoulder also still pops and pulls when lifting only light weights of 3-5 lbs. she is 19 weeks post op today. she has had one set back during her rehab due to a fall on the shoulder. she does not return to the MD until . Reported Pain Level Pain Score 1: Self Report Assessment PT Clinical Summary presents to skilled PT for her 36th skilled PT visit S/P RTC repair and SAD of the R shoulder. she has had one re-injury during her time in rehab when she had a fall on the R shoulder. she continues to have pain in the R shoulder with activities, and this is increased in lifting which is a main portion of her prior job functions. her treatment lately has consisted of UE weight resistance exercises to improve her strength. she displays improvement in overall strength, but is still lacking strength and functional lifting goals for skilled PT and return to work abilities. she would benefit from continued skilled PT to achieve these goals to allow her to return to her prior work duties and functional performance/quality of life. Plan of Care Interventions Therapeutic Exercise,Patient/Caregiver Educati, Manual Therapy,Neuro Re-education,Therapeutic Activities,Hot Pack/Cold Pack,Electrical Stimulation PT Services Indicated Yes Treatment Frequency and continue skilled PT 3x weekly for 12 more visits Duration These treatments will address the objective and functional deficits as defined above. The patient will be advanced safely and appropriately in order for the patient to progress towards his/her prior level of function. Additional exercises will be introduced and as well as a comprehensive home exercise program upon discharge, if needed, ?to ensure carryover of functional gains achieved in the clinic. This treatment plan has been reviewed and agreement upon by the patient.
--- NOTE | 2023-09-23 16:24 | PCPTNOTE ---
Patient cancelled session today. Patient reports she is in [place] and forgot about her session.
--- NOTE | 2023-10-03 07:29 | PCPTNOTE ---
patient cancelled due to work
--- NOTE | 2023-10-18 07:21 | OPREHPOC ---
Outpatient Therapy Plan of Care This is a Multidisciplinary Plan of Care that may contain components documented by all disciplines (PT, OT, and ST.) PT Problem 1 PT Problem #1 Knowledge Deficit PT Goal 1 Goal The patient will demonstrate independence in a home exercise program to continue after discharge from formal PT. Target Visit 48 Progress Partially Met Comment patient educated to progress weight lifting activities as she has no restrictions any longer. PT Problem 2 PT Problem #2 Pain PT Goal 1 Goal The patient will report no greater than 5/10 right shoulder pain with PROM to progress to AROM and eventually strengthening. Target Visit 36 Progress Met Comment . PT Goal 2 Goal The patient will report no greater than 2/10 right shoulder pain with lifting and carrying. Target Visit 48 Progress Not Met Comment progressing PT Problem 3 PT Problem #3 Impaired Range of Motion PT Goal 1 Goal The patient will demonstrate 150 degrees of right shoulder flexion PROM and 50 degrees of right shoulder ER PROM to progress to AROM. Target Visit 24 Progress Met PT Goal 2 Goal The patient will demonstrate 160 degrees of right shoulder flexion AROM to improve overhead lifting ability. met The patient will demonstrate right shoulder ER functional ROM to the occiput to perform grooming activities. met The patient will demonstrate right shoulder IR functional ROM to L1 to perform dressing activities. met Target Visit 48 Progress Met Comment . PT Problem 4 PT Problem #4 Impaired Strength PT Goal 1 Goal The patient will demonstrate 4+/5 right shoulder strength to improve the ability to lift, carry, push, and pull for daily and work tasks. Target Visit 48 Progress
--- NOTE | 2023-10-18 07:21 | PTOPREEVAL ---
Assessment and note entered by Nyasia Ralph DPT Evaluation Information Assessment Status Progress Diagnosis s/p R RCR, SAD, Onset 04/22/23 Subjective Information patient reports she is really happy with her ROM. she reports reaching behind her back and lifting over head are still limited. she reports she returns to MD on 10/18/23. Reported Pain Level Pain Score 0: Self Report Assessment PT Clinical Summary Mrs. Garcia presents to skilled PT for her 46th skilled PT visit S/P RTC repair and SAD of the R shoulder. she reports decreased pain levels but reports weakness with lifting overhead and reaching behind her back with dressing tasks. her treatment lately has consisted of work specific UE weight resistance exercises to improve her strength. she displays improvement in overall strength, but is still lacking strength and functional lifting goals for skilled PT and return to work abilities. she would benefit from continued skilled PT to achieve these goals to allow her to return to her prior work duties and functional performance/quality of life. Plan of Care Interventions Therapeutic Exercise,Patient/Caregiver Educati, Manual Therapy,Neuro Re-education,Therapeutic Activities,Hot Pack/Cold Pack,Electrical Stimulation PT Services Indicated Yes Treatment Frequency and continue with current POC Duration These treatments will address the objective and functional deficits as defined above. The patient will be advanced safely and appropriately in order for the patient to progress towards his/her prior level of function. Additional exercises will be introduced and as well as a comprehensive home exercise program upon discharge, if needed, ?to ensure carryover of functional gains achieved in the clinic. This treatment plan has been reviewed and agreement upon by the patient.
--- NOTE | 2023-10-20 17:32 | PTOPREEVAL ---
Assessment and note entered by JT File, PT Evaluation Information Assessment Status Re-evaluation Diagnosis s/p R RCR, SAD, Onset 04/22/23 Subjective Information patient reports she saw the MD on 10/18/23. she reports he would like her to be able to improve her strength and lifting ability prior to full return to work. she reports she was given no restrictions for lifting at home and in therapy, but reports she is still limited to 10lbs at work. she reports she does not return to the MD until 11/24/23. Reported Pain Level Pain Score 1: Self Report Pain Score 0: Self Report Assessment PT Clinical Summary mrs. arellano presents to skilled PT services for her 48th visit s/p R RCR and SAD. she has recently had a follow up with the surgeons office who has prescribed 12 additional skilled therapy visits to continue to improve her strength and lifting ability. she has met goals for HEP, pain, and rom of the R shoulder, but has not met strength or functional lifting/activity goals. continued skilled PT is indicated to achieve her remaining strength and functional goals to return to her prior level work related duties and quality of life. 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 Plan of Care Interventions Manual Therapy,Neuro Re-education,Patient/ Caregiver Educati,Therapeutic Activities, Therapeutic Exercise PT Services Indicated Yes Treatment Frequency and continue skilled PT 3x weekly for 12 more visits ( Duration 60 total) These treatments will address the objective and functional deficits as defined above. The patient will be advanced safely and appropriately in order for the patient to progress towards his/her prior level of function. Additional exercises will be introduced and as well as a comprehensive home exercise program upon discharge, if needed, ?to ensure carryover of functional gains achieved in the clinic. This treatment plan has been reviewed and agreement upon by the patient.
--- NOTE | 2023-11-07 17:28 | PCPTNOTE ---
patient no show no call
== END 2023-11-07 17:10 | disposition still patient (30) ==
LOC: CHSPT 15:45
DX: M75.101 Unspecified rotator cuff tear or rupture of right shoulder, not specified as traumatic (principal); M25.511 Pain in right shoulder
CPT/HCPCS: 97110; 97150; 97530

== ENCOUNTER 2023-08-26 13:16 | Outpatient (CLI) | payer OTHER, SELFPAY ==
[2023-08-26 13:53] LABS: Strep Group A RT-PCR NOT DETECTED (Negative)
[2023-08-26 14:03] LABS: SARS-CoV-2 RNA PCR Negative (Negative)
[2023-08-26 14:10] LABS: Influenza A QL RT-PCR Negative (Negative); Influenza B QL RT-PCR Negative (Negative); RSV RNA, RT-PCR Negative (Negative)
== END 2023-08-26 13:17 | disposition home or self-care (01) ==
LOC: CHSLAB 13:18
PROVIDERS: PCP Nurse Practitioner Family; Visit Provider Nurse Practitioner Family
DX: R05.9 Cough, unspecified (principal)
CPT/HCPCS: 87637; 87651

== ENCOUNTER 2023-11-09 17:13 | Outpatient (RCR) | payer OTHER, SELFPAY ==
[2023-11-09 17:11] VITALS: BP_SYST 123
--- NOTE | 2023-11-22 17:57 | OPREHPOC ---
Outpatient Therapy Plan of Care This is a Multidisciplinary Plan of Care that may contain components documented by all disciplines (PT, OT, and ST.) PT Problem 1 PT Problem #1 Knowledge Deficit PT Goal 1 Goal The patient will demonstrate independence in a home exercise program to continue after discharge from formal PT. Target Visit 48 Progress Met Comment patient educated to progress weight lifting activities as she has no restrictions any longer. PT Problem 2 PT Problem #2 Pain PT Goal 1 Goal The patient will report no greater than 5/10 right shoulder pain with PROM to progress to AROM and eventually strengthening. Target Visit 36 Progress Met Comment . PT Goal 2 Goal The patient will report no greater than 2/10 right shoulder pain with lifting and carrying. Target Visit 48 Progress Met Comment . PT Problem 3 PT Problem #3 Impaired Range of Motion PT Goal 1 Goal The patient will demonstrate 150 degrees of right shoulder flexion PROM and 50 degrees of right shoulder ER PROM to progress to AROM. Target Visit 24 Progress Met PT Goal 2 Goal The patient will demonstrate 160 degrees of right shoulder flexion AROM to improve overhead lifting ability. met The patient will demonstrate right shoulder ER functional ROM to the occiput to perform grooming activities. met The patient will demonstrate right shoulder IR functional ROM to L1 to perform dressing activities. met Target Visit 48 Progress Met Comment . PT Problem 4 PT Problem #4 Impaired Strength PT Goal 1 Goal The patient will demonstrate 4+/5 right shoulder strength to improve the ability to lift, carry, push, and pull for daily and work tasks. Target Visit 66 Progress
--- NOTE | 2023-11-22 17:57 | PTOPREEVAL ---
Assessment and note entered by JT File, PT Evaluation Information Assessment Status Re-evaluation Diagnosis s/p R RCR, SAD, Onset 04/22/23 Subjective Information patient reports she feels Good today. she reports she has a follow up with the surgeon on . she reports at her last visit she anticipated being DC'd and allowed to return to prior work duties, but needed to gain additional strength in the R arm at her last therapy visit. 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 she reports no more than 2/10 pain in the R shoulder this past week. Reported Pain Level Pain Score 0: Self Report Assessment PT Clinical Summary mrs. arellano presents to skilled PT services for her 60th skilled PT visit s/p R RCR and SAD. she presents today with no pain, and little pain at worst in the last week. she has been completing exercises to improve her strength and functional lifting of the R shoulder. however, she continues to lack adequate strength to meet strength and functional goals still. she also lacks strength to equal that of the uninvolved UE. 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 given her continued deficits in strength and functional lifting, she may benefit from transitioning to 2+ hour sessions of work conditioning 3 days per week for a 2 week stent to improve her functional strength and work related endutance prior to trying to return to full prior level work duties. Plan of Care Interventions Therapeutic Exercise,Patient/Caregiver Educati, Manual Therapy,Neuro Re-education,Therapeutic Activities PT Services Indicated Yes Treatment Frequency and 3x weekly work conditioning for 6 visits to Duration improve functional strength and work related endurance These treatments will address the objective and functional deficits as defined above. The patient will be advanced safely and appropriately in order for the patient to progress towards his/her prior level of function. Additional exercises will be introduced and as well as a comprehensive home exercise program upon discharge, if needed, ?to ensure carryover of functional gains achieved in the clinic. This treatment plan has been reviewed and agre
--- NOTE | 2023-11-30 14:02 | PCPTNOTE ---
Patient cancelled session today. Reports she is still not feeling well.
--- NOTE | 2023-12-02 10:27 | PCPTNOTE ---
Cancelled session hans. Reports she is still not feeling well.
--- NOTE | 2023-12-21 13:02 | PCPTNOTE ---
Cancelled session. Waiting on authorization.
--- NOTE | 2023-12-22 13:34 | OPREHPOC ---
Outpatient Therapy Plan of Care This is a Multidisciplinary Plan of Care that may contain components documented by all disciplines (PT, OT, and ST.) PT Problem 1 PT Problem #1 Knowledge Deficit PT Goal 1 Goal The patient will demonstrate independence in a home exercise program to continue after discharge from formal PT. Target Visit 48 Progress Met PT Problem 2 PT Problem #2 Pain PT Goal 1 Goal The patient will report no greater than 5/10 right shoulder pain with PROM to progress to AROM and eventually strengthening. Target Visit 36 Progress Met PT Goal 2 Goal The patient will report no greater than 2/10 right shoulder pain with lifting and carrying. Target Visit 48 Progress Met PT Problem 3 PT Problem #3 Impaired Range of Motion PT Goal 1 Goal The patient will demonstrate 150 degrees of right shoulder flexion PROM and 50 degrees of right shoulder ER PROM to progress to AROM. Target Visit 24 Progress Met PT Goal 2 Goal The patient will demonstrate 160 degrees of right shoulder flexion AROM to improve overhead lifting ability. met The patient will demonstrate right shoulder ER functional ROM to the occiput to perform grooming activities. met The patient will demonstrate right shoulder IR functional ROM to L1 to perform dressing activities. met Target Visit 48 Progress Met PT Problem 4 PT Problem #4 Impaired Strength PT Goal 1 Goal The patient will demonstrate 4+/5 right shoulder strength to improve the ability to lift, carry, push, and pull for daily and work tasks. Target Visit 66 Progress Not Met PT Goal 2 Goal patient will lift 20lbs overhead with R UE x5 reps without increased pain or body compensation patient will lift 40lbs from waist to shoulder level with bilateral UE's with safe mechanics and no increas
--- NOTE | 2023-12-22 13:34 | PTOPREEVAL ---
Assessment and note entered by JT File, PT Evaluation Information Assessment Status Re-evaluation Diagnosis s/p R RCR, SAD, Onset 04/22/23 Subjective Information patient reports some light pain in the anterior R shoulder today. she reports the highest her pain has been in the last week has been a 3/10 with lifting activities. she reports her HEP is going ok for the most part. she reports she has been cleaning her pantry at home which involves moving her arm fwd/bwd and up/down. she reports this is a workout and fatigues her arm. she reports the MD would like her to continue PT until she plateaus. Assessment PT Clinical Summary mrs. arellano presents to skilled PT for 66th skilled therapy visit (and 6th skilled therapy visit of work conditioning). patient has been tolerating 2 hour work conditioning sessions well. however, she continues to fatigue with R UE lifting activities, especially to shoulder level and overhead. progression of increased weight resistance has been slow, and patient continues to fatigue by the end of her work conditioning session. she has met goal for quick dash score, but continues to have not met the goal for strength and functional lifting of the R shoulder. patient would benefit from continued skilled PT to address her continued weakness and unmet strength/functional lifting goals. per patient, MD has suggested continued therapy until a plateau is achieved. patient has also voiced her wishes to continue to try and improve her strength and lifting ability to equal that of the L UE. Plan of Care Interventions Therapeutic Exercise,Patient/Caregiver Educati, Manual Therapy,Neuro Re-education,Therapeutic Activities PT Services Indicated Yes Treatment Frequency and continue work conditioning therapy 3x weekly for 6 Duration more visits These treatments will address the objective and functional deficits as defined above. The patient will be advanced safely and appropriately in order for the patient to progress towards his/her prior level of function. Additional exercises will be introduced and as well as a comprehensive home exercise program upon discharge, if needed, ?to ensure carryover of functional gains achieved in the clinic. This treatment plan has been reviewed and agreement upon by the patient.
--- NOTE | 2023-12-23 14:52 | PCPTNOTE ---
Cancelled due to no authorization.
--- NOTE | 2023-12-26 16:13 | PCPTNOTE ---
Cancelled session. Pt states she did not know she was approved for therapy.
--- NOTE | 2024-01-09 17:32 | PTOPDC ---
Assessment and note entered by Oseas Root Evaluation Information Assessment Status Discharge Diagnosis s/p R RCR, SAD Onset 04/22/23 Subjective Information Pt. reports that she still has complication with lifting overhead. She reports she used to be able to lift 40# overhead and states that she still struggles achieving that weight. She reports that she could be required to lift a load of that size multiple times a day. She reports she will not be returning to the same job she had prior to injury. She reports she is going to attempt to exercise on her own. Reported Pain Level Pain Score 1: Self Report Assessment PT Clinical Summary Pt. has met majority of goals established at the initial evaluation. She demonstrates safe mechanics with moderate weight being lifted. She is encouraged to continue with her HEP and will be discharged from our care. Plan of Care PT Services Indicated No
== END 2024-01-09 18:00 | disposition home or self-care (01) ==
LOC: CHSPT 17:13
DX: M75.101 Unspecified rotator cuff tear or rupture of right shoulder, not specified as traumatic (principal); M25.511 Pain in right shoulder
CPT/HCPCS: 97110; 97112; 97530; 97545

== ENCOUNTER 2023-11-29 15:04 | Outpatient (CLI) | payer OTHER, SELFPAY ==
[2023-11-29 15:42] LABS: Appearance Urine Clear (Clear); Bilirubin Urine Negative (Negative); Blood Urine 2+ (Negative); Color Urine Light Yellow (Yellow); Glucose Urine UA Negative (Negative); Ketones Urine Negative (Negative); Leukocyte Esterase Ur 2+ (Negative); Nitrate Urine Negative (Negative); Protein Urine Trace (Negative); Specific Grav Ur <= 1.005 (1.010-1.020); Urobilinogen Urine 0.2 mg/dL (0.2-1.0)
[2023-11-29 15:43] LABS: Basophils Absolute Auto 0.03 K/mm3 (0.00-0.10); Basophils Percent Auto 0.4 % (0.0-1.0); Eosinophils Absolute Auto 0.07 K/mm3 (0.02-0.50); Hematocrit 46.2 % (35.0-49.0); Hemoglobin 15.9 g/dL (12.0-15.0); Immature Granulocyte Absolute 0.02 K/mm3 (0.00-0.00); Immature Granulocyte Percent A 0.3 % (0.0-0.0); Lymphocytes Absolute Auto 1.26 K/mm3 (1.10-4.50); Lymphocytes Percent Auto 18.2 % (18.0-42.0); Mean Corpuscular HGB Conc 34.4 g/dL (32-36); Mean Corpuscular Hemoglobin 31.9 pg (27.0-31.0); Mean Corpuscular Volume 92.6 fL (78.0-102.0); Mean Platelet Volume 9.7 fl (9.2-11.8); Monocytes Absolute Auto 0.63 K/mm3 (0.10-0.90); Monocytes Percent Auto 9.1 % (2.0-11.0); Neutrophils Absolute Auto 4.91 K/mm3 (1.70-7.20); Platelet Count Result 292 K/mm3 (150-420); Red Blood Count 4.99 M/mm3 (4.20-5.40); Red Cell Distribution Width 12.7 % (11.6-14.4); White Blood Count 6.9 K/mm3 (4.8-10.8)
[2023-11-29 15:52] LABS: Add Urine Microscopic? YES; Bacteria Urine 3+ /hpf; Squamous Epithelial Cell Urine Moderate /hpf (Few)
[2023-11-29 16:43] LABS: Alanine Aminotransferase 33 U/L (14-59); Albumin Level 4.1 g/dL (3.4-5.0); Alkaline Phosphatase 110 U/L (46-116); Anion Gap 12 mmol/L (4-12); Aspartate Amino Transferase 55 U/L (15-37); Bilirubin,Total 1.2 mg/dL (0.00-1.00); Blood Urea Nitrogen 11 mg/dL (7-18); Carbon Dioxide 29 mmol/L (21-32); Chloride 93 mmol/L (98-108); Cholesterol 250 mg/dL (0-200); Estimated Glomerular Filt Rate > 60; Folic Acid 18.6 ng/mL (8.6->20); Glucose 105 mg/dL (70-99); HDL Direct 98 mg/dL (40-60); LDL Cholesterol Calculated 135 mg/dL (<130); Osmolality Calculated 277 mOsm/kg (285-295); Potassium 4.4 mmol/L (3.5-5.1); Sodium 134 mmol/L (136-145); Thyroid Stimulating Hormone 1.55 uIU/mL (0.36-3.74); Total Protein 8.7 g/dL (6.4-8.2); Triglycerides 87 mg/dL (0-150); Vitamin B12 202 pg/mL (193-986)
[2023-12-01 09:01] LABS: Hemoglobin A1C 5.4 % (<5.7)
== END 2023-11-29 15:05 | disposition home or self-care (01) ==
LOC: CHSLAB 15:05
PROVIDERS: PCP Nurse Practitioner Family; Visit Provider Nurse Practitioner Family
DX: Z00.00 Encounter for general adult medical examination without abnormal findings (principal); R42 Dizziness and giddiness
CPT/HCPCS: 36415; 80053; 80061; 81001; 82607; 82746; 83036; 84443; 85025; 87086; 87088

== ENCOUNTER 2024-04-12 18:55 | Outpatient (CLI) | payer OTHER, SELFPAY ==
[2024-04-12 19:43] LABS: Influenza A QL RT-PCR Negative (Negative); Influenza B QL RT-PCR Negative (Negative); RSV RNA, RT-PCR Negative (Negative); SARS-CoV-2 RNA PCR Positive (Negative)
== END 2024-04-12 18:56 | disposition home or self-care (01) ==
LOC: CHSLAB 18:55
PROVIDERS: PCP Nurse Practitioner Family; Visit Provider Nurse Practitioner Family
DX: R05.9 Cough, unspecified (principal); U07.1 COVID-19
CPT/HCPCS: 87637

== ENCOUNTER 2025-01-19 18:02 | Outpatient (CLI) | payer OTHER, SELFPAY ==
--- NOTE | ~2025-01-19 | XR_ITS ---
EXAM: XR knee RT 3V, XR knee LT 3V DATE: 01/19/2025 18:17 HISTORY: chronic b/l knee pain >10 years, NKI . COMPARISON: 05/14/2022. FINDINGS: Decreased mineralization. No fracture or dislocation. No lytic or blastic lesion. Moderate bilateral medial joint space narrowing. Tricompartmental bilateral osteophytosis. Small volume bilat eral joint fluid collections. No erosion or periosteal change. Soft tissues within normal limits. IMPRESSION: Osteopenia. Moderate tricompartmental osteoarthritis of the knees. Small bilateral knee j oint effusions Reviewed, dictated and finalized at location [facility]. IMPRESSION: Osteopenia. Moderate tricompartmental osteoarthritis of the knees. Small bilateral knee joint effusions
[2025-01-19 19:22] LABS: Cholesterol 210 mg/dL (0-200); HDL Direct 61 mg/dL; LDL Cholesterol Calculated 116 mg/dL (<130); Triglycerides 166 mg/dL (<150)
== END 2025-01-19 18:03 | disposition home or self-care (01) ==
PROVIDERS: Nurse Practitioner Family; PCP Nurse Practitioner Family; Visit Provider Nurse Practitioner Family
DX: E78.5 Hyperlipidemia, unspecified (principal); M25.562 Pain in left knee; M25.561 Pain in right knee; M85.89 Other specified disorders of bone density and structure, multiple sites; M17.0 Bilateral primary osteoarthritis of knee; M25.462 Effusion, left knee; M25.461 Effusion, right knee
CPT/HCPCS: 36415; 73562; 80061

== ENCOUNTER 2025-02-05 14:08 | Outpatient (CLI) | payer OTHER, SELFPAY ==
--- NOTE | ~2025-02-05 | DEXA_ITS ---
Bone Density Report Name: CATHLEEN MARTI Age: 64 Sex: Female Ethnicity: White Date of : 1960 Indication: postmenopausal; screening for osteoporosis; Referring Provider: Liya Rahman Study: Bone densitometry was performed. Exam Date: February 05, 2025 Accession number: [id number] Bone Density: Region BMD T-score Z-score Classification AP Spine(L1, L2, L3) 0.936 -0.7 0.8 Normal Femoral Neck (Left) 0.696 -1.4 0.0 Osteopenia Total Hip (Left) 0.921 -0.2 0.9 Normal Femoral Neck (Right) 0.625 -2.0 -0.6 Osteopenia Total Hip (Right) 0.852 -0.7 0.3 Normal Femoral Neck Mean 0.660 -1.7 -0.3 Osteopenia Total Hip Mean 0.886 -0.5 0.6 Normal World Health Organization criteria for BMD impression classify patients as: Normal (T-score at or above -1.0), Osteopenia (T-score between -1.0 and -2.5), or Osteoporosis (T-score at or below -2.5). 10-year Fracture Risk(1): Major Osteoporotic Fracture 11% Hip Fracture 1.7% Reported Risk Factors: [place] (), Neck BMD=0.625, BMI=33.3, alcohol use (1) FRAX(R) Version 3.08. Fracture probability calculated for an untreated patient. Fracture probability may be lower if the patient has received treatment. Clinical Information Provided by Patient: Has 3 or more alcoholic drinks per day Has used the following medications: HRT (i.e. estrogen/hormone therapy), Vitamin D, Lupron Patient maximum height was 65.75 Menopause Age: 57 No regular weight bearing exercise Does not regularly consume dairy products Drinks caffeinated beverages Onset of menses at age 16 Number of children 1 Impression: The patient has low bone mass, based on the Right Femoral Neck T-score. The patient has risk factors, including: excessive alcohol use. Discussion: BONE DENSITY IS LOW AT ONE OR MORE SKELETAL SITES. This patient's lowest T-score is low at one or more skeletal sites. It meets the World Health Organization's (WHO) criteria for ?low bone mass? (T-score between -1.0 and -2.5). The patient's 10-year risk of fracture as calculated by FRAX is less than the threshold where pharmacological therapy is recommended by the National Osteoporosis Foundation (NOF). However, all treatment decisions require clinical judgment and consideration of individual patient factors, including patient preferences, comorbidities, previous drug use, risk factors not captured in the FRAX model (e.g., frailty, falls, vitamin D deficiency, increased bone turnover, interval significant decline in bone density) and possible under or overestimation of fracture risk by FRAX. The patient should follow a healthful lifestyle (good nutrition with adequate calcium and vitamin D, and appropriate weight-bearing exercise). Follow-Up: Consider repeating this study in 2 to 3 years to reassess this patient's status, or sooner if there is some new clinical indication. Reported by: RACHEAL on 02/08/2025 9:00:00 AM. Reviewed, dictated and finalized at location A.
--- OUTSIDE RECORDS SUMMARY | 2025-02-05 14:11 | XMS_ITS | Data Portability ---
Author Organization [facility], [address] [place] [address] [place]rology ([place]) Address [address] [address] Care Team Providers Care Destination Specialist Name Role Phone FOSTER BOGGS Primary Care Provider KUMAR SANTILLAN Belt Knife Feeder [phone] Assessment Encounter Date Assessment Date Assessment LastModified by Organization Details LastModified Time 11/25/2023 11/25/2023 GE Mensah presents today to followup on her right arthroscopic rotator cuff repair. The patient feels like they are on par with the recovery process and doing well. She feels that her strength has been improving and she has been able to increase her weights. 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 She does feel that she is still lacking some of her strength today, but is improving overall. The patient is looking forward to discussing her options of care moving forward. Activity: The patient has been using their surgical shoulder for normal light tasks without difficulty. Therapy: The patient is actively participating in physical therapy in addition to their home exercise program. PHYSICAL EXAM Right shoulder: NeuroSensoryMotor Med Uln Rad MSK intact to light touch median ulnar radial and axial distributions with the ability to prove motor function of the extremity as well. AXILLARY NERVE Able to fire all three heads of the deltoid strongly. PASSIVE RANGE OF MOTION Tolerated passive ROM without crepitance. Active Forward elevation: >150 degrees. External Rotation: 70-50 degrees. Internal Rotation: Lower Thoracic Spine IMAGING Most recent images reviewed in the computer, I agree with the radiologists interpretation. We had those images available in the room today. Discussed with the patient in detail and referenced any available reports. Progress: We did teaching in the room today, reminding the patient that they are progressing as expected. We also discussed the phases of recovery after arthroscopy. We discussed the procedure and our outcome goals. ASSESSMENT Status post right arthroscopic rotator cuff repair. PLAN We discussed the overall clinical findings as well as reviewed the patients course in the digital record and to an extent with the patient. We discussed the expected prognosis and the plan moving forward. We reviewed anything we could have changed along the way with the patient and offered a time for feedback. Both the patient and myself are informed in my estimation based on the encounter today. 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 At the end of the conversation I, again, gave the patient a chance to ask any questions and answered them to the best of my ability. Therapy: We discussed continuing with formal physical therapy at this time. We talked about attempting the work hardening program to allow for her to improve her strength. We will continue to follow the patient along per our protocol. They were encouraged to call our office with any questions or concerns in the meantime. We will plan for the patient to followup again in 2 months to discuss therapy and her options of care at that time. The patient understands and agrees with this plan of care moving forward and would like to proceed at this time. The patient was given follow up information and the ability to contact our clinic with any additional questions. 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 The patient feels like they are on par with the recovery process and doing well. She mentions that she has been back to work and performing light tasks without difficulty at this point. She has completed formal physical therapy and is overall doing really well. She reports improvements in her pain and range of motion today. The patient is looking forward to discussing her plan of care moving forward. PHYSICAL EXAM Right shoulder: NeuroSensoryMotor Med Uln Rad MSK intact to light touch median ulnar radial and axial distributions with the ability to prove motor function of the extremity as well. AXILLARY NERVE Able to fire all three heads of the deltoid strongly. PASSIVE RANGE OF MOTION Tolerated passive ROM without crepitation. Active Forward elevation: >150 degrees. External Rotation: >70 degrees. Internal Rotation: Lower Thoracic Spine IMAGING Most recent images reviewed in the computer, I agree with the radiologists interpretation. We had those images available in the room today. Discussed with the patient in detail and referenced any available reports ASSESSMENT Status post right arthroscopic rotator cuff repair. PLAN We discussed the overall clinical findings as well as reviewed the patients course in the digital record and to an extent with the patient. We discussed the expected prognosis and the plan moving forward. We reviewed anything we could have changed along the way with the patient and offered a time for feedback. Both the patient and myself are informed in my estimation based on the encounter today. We discussed some of the complicating factors that could affect this patient's course halfway. At the end of the conversation I, again, gave the patient a chance to ask any questions and answered them to the best of my ability. At this point, we discussed the patient's improvements, symptoms and overall options of care together in the room. We talked about having the patient proceed with returning to work at full duty today. We discussed gradually returning at this time. We talked about continuing with at home stretching and calling if she has any worsening symptoms. We will have her hold off on maximum medical improvement in case the patient is unable to return to her full duties. We will plan for the patient to followup again in 2 months to discuss her overall clinical picture and plan of care at that time. The patient understands and agrees with this plan of care moving forward and would like to proceed at this time. At the end of this visit, we were diligent to make sure the patient is equipped with our contact information and understands we are here to help them through this process. Not available 02/03/2024 10:48:46 Plan of Treatment Reminders Order Date Submit Date Provider Last Modified By Organization Details Last Modified Time Details Appointments None record ed. Lab None record ed. Referral None record ed. Procedures None record ed. Surgeries None record ed. Imaging None record ed. Medication Orders None record ed. Patient TargetsNo targets recorded. Patient InstructionsNo instructions recorded. Reason for Referral None Reported. Problems Name Problem SNOMED Code Status Onset Date Resolution Date Notes Provider Name and Address Organization Details Recorded Time Pain of right shoulder joint [id number] 00 Active 2023 Lindsey Keating [facility] 4 12:12:29 Problem Notes None recorded. Medical Equipment None Reported. Allergies Allergen ID Allergen Name Allergen Category Reaction Reaction Severity Criticality Documentation Date Start Date Code Code System Note Provider Name and Address Organization Details Recorded Time [id number] amoxicill in medicatio n Not available Not available Not available 08/24/20232021 723 RxNorm Not Available [facility] 4 04:15:00 [id number] lisinopri l medicatio n Not available Not available Not available 08/24/20232021 91652 RxNorm Not Available [facility] 4 04:15:00 Medications Name Sig Start Date Stop Date Status Note LastModified by Organization Details LastModified Time cyclobenzapr ine 10 mg tablet TAKE 1 TABLET EVERY 8 HOURS NEEDED active Not Available Not Available No t Available doxycycline hyclate 100 mg capsule TAKE 1 CAPSULE BY MOUTH TWICE A DAY FOR 14 DAYS active Not Available Not Available No t Available meclizine 12.5 mg tablet 12.5 MG ORALLY THREE TIMES A DAY NEEDED FOR DIZZINESS active Not Available Not Available No t Available amlodipine 5 mg tablet TAKE 1 TABLET ORALLY DAILY NEEDED FOR HYPERTENSIO N active Not Available Not Available No t Available aspirin 81 mg tablet,delay ed release TAKE 1 TABLET BY MOUTH EVERY 12 HOURS active Not Available Not Available No t Available tramadol 50 mg tablet TAKE 1 TABLET BY MOUTH EVERY 6 HOURS NEEDED active Not Available Not Available No t Available amlodipine 10 mg tablet TAKE 1 TABLET BY MOUTH EVERY DAY active Not Available Not Available No t Available montelukast 10 mg tablet TAKE 1 TABLET BY MOUTH EVERY DAY active Not Available Not Available No t Available hydrochlorot hiazide 25 mg tablet TAKE 1 TABLET BY MOUTH EVERY DAY active Not Available Not Available No t Available azelastine 137 mcg (0.1 %) nasal spray 2 SPRAY INTRANASALL Y EVERY 12 HOURS ADMINISTER INTO EACH NOSTRIL active Not Available Not Available No t Available ipratropium bromide 42 mcg (0.06 %) nasal spray USE 2 SPRAYS INTRANASALL Y THREE TIMES A DAY ADMINISTER INTO EACH NOSTRIL active Not Available Not Available No t Available losartan 100 mg tablet TAKE 1 TABLET BY MOUTH EVERY DAY active Not Available Not Available No t Available nitrofuranto in monohydrate/ macrocrystal s 100 mg capsule 100 MG ORALLY EVERY 12 HOURS FOR 5 DAYS MUST ADMINISTER WITH A MEAL/FOOD active Not Available Not Available No t Available Lagevrio 200 mg capsule (EUA) TAKE 4 CAPSULES (800 MG) ORALLY EVERY 12 HOURS FOR 5 DAYS active Not Available Not Available No t Available Vitals None Recorded Social History None recorded. Functional Status None recorded. Mental Status None recorded. Family History Nothing Reported. Medical History No medical history recorded. Gynecological HistoryNo gynecological history recorded. Obstetrics History GPAL:G 0 P 0 0 0 0 Past Encounters Encounter ID Performer Location Encounter Start Date Encounter Closed Date Diagnosis/Indication Diagnosis SNOMED-CT Code Diagnosis ICD10 Code Diagnosis Note [id number] MD Ida Villalobos [facility] ([place] [address] [place] [address],[address] [place] [address] 11/25/2023 11:51:42 11/25/2023 13:09:29 [id number] MD Ida Villalobos [facility] ([place]) [address] [place] [address],[address] [place] [address] 02/02/2024 11:09:34 02/02/2024 12:26:18 Pain of right shoulder joint [id number] M25.511 Evaluation procedure [id number] Z98.890 Health Concerns Section Related Observation LastModified by Organization Detai ls LastModified Time None Recorded Concern Status LastModified by Organization Details LastModified Time None Recorded Advance Directives Directive None Recorded Payers Insurance Date Sequence Insurance Name Policy Number Policy Ortega Covered Member ID Ortega Member ID Guarantor Name 11/25/2023 [facility] [employer] M[place] Makenna Radha 02/01/2024 1 [employer] Maken[place] [id number] OI Makenna Radha 05/27/2024 1 [employer] Makenna Radha [id number] OI Makenna Radha OBGyn Episode No OBEpisode recorded.
--- OUTSIDE RECORDS SUMMARY | 2025-02-05 14:11 | XMS_ITS ---
Author Organization Unknown Medications Medication Instructions Effective Dates (start - stop) Status hydrochlorothiazide 25 MG Or al Tablet - Completed cyclobenzaprine hydrochlorid e 10 MG Oral Tablet - Completed cyclobenzaprine hydrochlorid e 10 MG Oral Tablet - Completed montelukast 10 MG Oral Tablet 2024-01-13 00:00:00Z - Completed aspirin 81 MG Delayed Releas e Oral Tablet - Completed montelukast 10 MG Oral Tablet 2023-03-16 00:00:00Z - Completed nitrofurantoin, macrocrystal s 25 MG / nitrofurantoin, monohydrate 75 MG Oral Capsule - Completed cyclobenzaprine hydrochlorid e 10 MG Oral Tablet - Completed meclizine hydrochloride 12.5 MG Oral Tablet - Completed amlodipine 10 MG Oral Tablet [id number] 0:00:00Z - Completed doxycycline hyclate 100 MG O ral Capsule - Completed azelastine hydrochloride 0.1 37 MG/ACTUAT Metered Dose Nasal [place] - Co mpleted tramadol hydrochloride 50 MG Oral Tablet - Completed Patient Care team information Name Category Status Period Participants - - Proposed period not known -
[2025-02-05 14:50] LABS: Alanine Aminotransferase 20 U/L (6-35); Albumin Level 4.2 g/dL (3.5-5.1); Alkaline Phosphatase 85 U/L (38-126); Anion Gap 6 mmol/L (4-12); Aspartate Amino Transferase 42 U/L (14-36); Bilirubin,Total 0.8 mg/dL (0.2-1.3); Blood Urea Nitrogen 18 mg/dL (7-17); Calcium 9.1 mg/dL (8.4-10.2); Carbon Dioxide 24 mmol/L (22-30); Chloride 108 mmol/L (98-107); Estimated Glomerular Filt Rate > 60; Glucose 102 mg/dL (65-110); Osmolality Calculated 287 mOsm/kg (285-295); Potassium 4.6 mmol/L (3.4-5.0); Sodium 138 mmol/L (137-145); Total Protein 7.7 g/dL (6.3-8.2)
== END 2025-02-05 14:09 | disposition home or self-care (01) ==
LOC: CHSIMG 14:09
PROVIDERS: PCP Nurse Practitioner Family; Visit Provider Nurse Practitioner Family
DX: I10 Essential (primary) hypertension (principal); M85.80 Other specified disorders of bone density and structure, unspecified site; Z78.0 Asymptomatic menopausal state; M85.89 Other specified disorders of bone density and structure, multiple sites
CPT/HCPCS: 36415; 77080; 80053